=== PATIENT | female | born 1940 | race Caucasian/White ===

== ENCOUNTER 2018-02-05 22:18 | Emergency (ER) | payer OTHER, BC ==
[2018-02-05 22:24] VITALS: BMI 33.8
--- NOTE | 2018-02-06 00:55 | PDOC ---
History of Present Illness <Jojo Lange - Last Filed: 02/06/18 01:05> - General History Source: Patient Exam Limitations: No Limitations - History of Present Illness Initial Comments: 02/06/18 00:51 Patient is a 77F with history of HTN here today complaining of diffuse weakness for the past month. Patient endorses associated flushing. Denies chest pain, fevers, chills, nausea, vomiting. Denies dysuria, but endorses a baseline urinary frequency. Denies diarrhea, constipation. Denies leg swelling. Patient states that she had some momentary chest pain a week ago and is due to get a stress test and echo next week. Denies headache, cough, and shortness of breath. <Ten Moore - Last Filed: 02/06/18 02:57> - General Chief Complaint: Weakness Stated Complaint: weakness Time Seen by Provider: 02/05/18 23:38 Past History <NazarioJojo - Last Filed: 02/06/18 01:05> - Suicide/Smoking/Psychosocial Hx Smoking History: Never smoked Have you smoked in the past 12 months: No Information on smoking cessation initiated: No Hx Alcohol Use: No Drug/Substance Use Hx: No <Ten Moore - Last Filed: 02/06/18 02:57> - Past Medical History Allergies/Adverse Reactions: Allergies Allergy/AdvReac Type Severity Reaction Status Date / Time Sulfa (Sulfonamide Allergy Verified 02/05/18 22:26 Antibiotics) Home Medications: Ambulatory Orders Omeprazole 40 mg PO ONCE #30 capsule 11/06/13 Cephalexin Monohydrate [Keflex -] 500 mg PO BID #14 capsule 02/06/18 Review of Systems - Review of Systems Comments:: 02/06/18 00:53 GENERAL/CONSTITUTIONAL: No fever or chills. +weakness. HEAD, EYES, EARS, NOSE AND THROAT: No change in vision. No sore throat. CARDIOVASCULAR: No chest pain or shortness of breath RESPIRATORY: No cough, wheezing, or hemoptysis. GASTROINTESTINAL: No nausea, vomiting, diarrhea or constipation. GENITOURINARY: No dysuria, +frequency MUSCULOSKELETAL: No joint or muscle swelling or pain. No neck or back pain. SKIN: No rash NEUROLOGIC: No headache, vertigo, loss of consciousness, or change in strength/ sensation. ENDOCRINE: No increased thirst. No abnormal weight change HEMATOLOGIC/LYMPHATIC: No anemia, easy bleeding, or history of blood clots. ALLERGIC/IMMUNOLOGIC: No hives or skin allergy. <Ten Moore - Last Filed: 02/06/18 02:57> *Physical Exam - Vital Signs Last Vital Signs Temp Pulse Resp BP Pulse Ox 97.6 F 76 16 146/76 100 02/05/18 22:21 02/05/18 22:21 02/05/18 22:21 02/05/18 22:21 02/05/18 22:21 <Jojo Lange - Last Filed: 02/06/18 01:05> - Vital Signs Last Vital Signs Temp Pulse Resp BP Pulse Ox 97.6 F 76 16 146/76 100 02/05/18 22:21 02/05/18 22:21 02/05/18 22:21 02/05/18 22:21 02/05/18 22:21 - Physical Exam Comments: 02/06/18 00:54 GENERAL: Awake, alert, and fully oriented, in no acute distress HEAD: No signs of trauma, normocephalic, atraumatic EYES: PERRLA, EOMI, sclera anicteric, conjunctiva clear ENT: Auricles normal inspection, hearing grossly normal, nares patent, oropharynx clear without exudates. Moist mucosa NECK: Normal ROM, supple, no lymphadenopathy, JVD, or masses LUNGS: No distress, speaks full sentences, clear to auscultation bilaterally HEART: Regular rate and rhythm, normal S1 and S2, no murmurs, rubs or gallops, peripheral pulses normal and equal bilaterally. ABDOMEN: Soft, nontender, normoactive bowel sounds. No guarding, no rebound. No masses EXTREMITIES: Normal inspection, Normal range of motion, no edema. No clubbing or cyanosis. NEUROLOGICAL: Cranial nerves II through XII grossly intact. Normal speech, normal gait, no focal sensorimotor deficits SKIN: Warm, Dry, normal turgor, no rashes or lesions noted. <OscarTen - Last Filed: 02/06/18 02:57> Heart Score/ECG Review - Risk Factors Risk Factors Heart Score: Yes Hx Hypercholesterolemia, Yes Hx Hypertension, Yes Hx Obesity - ECG Intrepretation Rhythm: Regular Rhythm - Almo Almo: Normal - P and VT Prominent R with upright T in V1 (true posterior SC): No Delta Wave(s) Present: No - ST and T Early Repolarization: No Non Specific ST-T Wave changes: No Flattened T Waves: No Prolonged Q-T Interval: No <Jojo Lange - Last Filed: 02/06/18 01:05> ED Treatment Course - LABORATORY CBC & Chemistry Diagram: 02/06/18 01:30 02/06/18 01:30 - RADIOLOGY Radiology Studies Ordered: Category Date Time Status CHEST X-RAY PORTABLE* [RAD] Stat Radiology 02/06/18 00:01 Ordered <Ten Moore - Last Filed: 02/06/18 02:57> Medical Decision Making - Medical Decision Making 02/06/18 00:54 Patient is 77F with history of HTN here today complaining of weakness for 1 week. Vitals normal and stable. DDx includes, but is not limited to: UTI, CHF, pneumonia, atypical ACS. Will evaluate with cardiac labs, UA/UC, EKG, CXR. Likely discharge. 02/06/18 01:02 EKG shows normal sinus rhythm with rate of 61. No st elevations/depressions. Normal axis. Normal intervals. No significant t wave abnormalities. 02/06/18 02:15 CMP shows mild LESVIA. Given 1L. UA shows UTI. Given keflex. Will discharge home. Trop/BNP below thresholds. <Ten Moore - Last Filed: 02/06/18 02:57> *DC/Admit/Observation/Transfer <LangeJojo - Last Filed: 02/06/18 01:05> - Discharge Dispostion Decision to Admit order: No <OscarTen - Last Filed: 02/06/18 02:57> Diagnosis at time of Disposition: UTI (urinary tract infection), Hypothyroidism, Acute kidney injury - Discharge Dispostion Disposition: HOME Condition at time of disposition: Good - Prescriptions Prescriptions: Cephalexin Monohydrate [Keflex -] 500 mg PO BID #14 capsule - Referrals Referrals: Bassem Smiley MD [Primary Care Provider] - - Patient Instructions Printed Discharge Instructions: DI for Urinary Tract Infection (UTI), DI for Hypothyroidism Additional Instructions: You were seen today in the ED and found to have a UTI. We also found that your thyroid hormone level is likely low and that you were dehydrated. Please take your antibiotics until the prescription has been completed. Please call your primary care doctor to follow up on your lab results and weakness. - Post Discharge Activity
[2018-02-06 01:10] LABS: URINE APPEARANCE SLCLOUDY; URINE BILIRUBIN NEGATIVE (<2.0 mg/dL); URINE COLOR LTYELLOW; URINE GLUCOSE (UA) NEGATIVE (NEGATIVE); URINE KETONE NEGATIVE (NEGATIVE); URINE LEUK ESTERASE 3+ (NEGATIVE); URINE NITRITE NEGATIVE (NEGATIVE); URINE PROTEIN NEGATIVE (NEGATIVE); URINE UROBILINOGEN NEGATIVE mg/dL (0.2-1.0)
--- NOTE | 2018-02-06 01:10 | PDOC ---
Attending Attestation - HPI HPI: 02/06/18 01:17 The patient is a 77 year old female with no pertinent past medical history who presents to the ED with complaints of one week of generalized weakness with subjective fever and feels flushed. Denies any chills, vomiting, cough, SOB, or urinary complaints. Reports she had an episode of chest pain 4 days ago which she is being followed up with cardiology on an outpatient basis. Presently denies any chest pain. <Monica Laura - Last Filed: 02/06/18 01:14> - Resident Resident Name: Ten Moore - ED Attending Attestation I have performed the following: I have examined & evaluated the patient, The case was reviewed & discussed with the resident, I agree w/resident's findings & plan - Physicial Exam PE: 02/06/18 03:13 Agree with resident exam. Pt is afebrile. No back or flank pain elicited on exam. Pt has no CP or abd pain. Pt has minimal suprapubic tenderness. Afebrile HEENT normal - Medical Decision Making 02/06/18 01:07 Pt states that she has malaise and nausea x 3 days she noted that her BP was elevated, so she went to see her PMD, who asked her to cut one of her 3 BP meds in half. Pt states that she has no dysuria. The only pain that she has is her chronic back pain from bulging disks. 02/06/18 03:09 Pt is hypothyroid, and she has a UTI. 02/06/18 03:09 Pt will be treated with keflex 02/06/18 04:00 She will follow with PMD for further workup of the abnormal TSH. <Jojo Lange - Last Filed: 02/06/18 04:00>
[2018-02-06 01:16] LABS: EPI CELLS FEW /HPF (FEW); URINE BACTERIA FEW /hpf (NONE SEEN); URINE MUCUS RARE
[2018-02-06 01:39] LABS: BASO % 0.7 % (0-2.0); EOS % 2.1 % (0-4.5); HEMATOCRIT 41.9 % (32.4-45.2); LYMPH % 26.1 % (8-40); MCH 30.2 pg (25.7-33.7); MCHC 33.5 g/dl (32.0-36.0); MEAN PLT VOLUME 9.3 fl (7.5-11.1); MONO % 6.8 % (3.8-10.2); NEUT % 64.3 % (42.8-82.8); PLATELET COUNT 242 K/MM3 (134-434); RBC 4.66 M/mm3 (3.60-5.2); RDW 14.3 % (11.6-15.6); WHITE BLOOD COUNT 9.2 K/mm3 (4.0-10.0)
[2018-02-06 01:52] LABS: INR 0.94 (0.83-1.09); PROTHROMBIN TIME (PATIENT) 11.1 SEC (9.7-13.0)
[2018-02-06] MEDS ORDERED: CEPHALEXIN MONOHYDRATE 500 MG CAPSULE (UD) PO ONE (02:03)
[2018-02-06 02:05] LABS: ALBUMIN 3.8 g/dl (3.4-5.0); ALK PHOS 78 U/L (45-117); ANION GAP 10 MMOL/L (8-16); BILIRUBIN,TOTAL 0.3 mg/dL (0.2-1); BLOOD UREA NITROGEN 43 mg/dL (7-18); CALCIUM 9.3 mg/dL (8.5-10.1); CHLORIDE 103 mmol/L (98-107); CO2 26 mmol/L (21-32); CREATININE 1.4 mg/dL (0.55-1.3); GLUCOSE,RANDOM 109 mg/dL (74-106); MAGNESIUM 2.2 mg/dL (1.8-2.4); N-TERMINAL BNP 229.2 pg/ml (5-450); POTASSIUM 4.1 mmol/L (3.5-5.1); SGOT/AST 17 U/L (15-37); SGPT/ALT 20 U/L (13-61); SODIUM 138 mmol/L (136-145); TOT PROT 7.8 g/dl (6.4-8.2)
[2018-02-06] MEDS ORDERED: SODIUM CHLORIDE 1,000 ML IV STA (02:09)
[2018-02-06] MEDS ORDERED: CEPHALEXIN MONOHYDRATE 500 MG CAPSULE (UD) ONE (02:23)
[2018-02-06 03:22] VITALS: BP 145/74; PULSE 84; TEMP 97.9
--- NOTE | 2018-02-06 13:57 | EKG ---
Test Reason : Blood Pressure : / mmHG Vent. Rate : 061 BPM Atrial Rate : 061 BPM P-R Int : 168 ms QRS Dur : 080 ms QT Int : 428 ms P-R-T Axes : 048 -06 039 degrees QTc Int : 430 ms NORMAL SINUS RHYTHM NORMAL ECG WHEN COMPARED WITH ECG OF 17-AUG-2004 10:24, NO SIGNIFICANT CHANGE WAS FOUND Confirmed by MD Wheatley Edward ([id number]) on 02/06/2018 1:57:06 PM Referred By: Confirmed By:Edwar Wheatley MD
== END 2018-02-06 06:14 | disposition home or self-care (01) ==
LOC: JER 22:18
PROC: 3E0337Z Introduction of Electrolytic and Water Balance Substance into Peripheral Vein, Percutaneous Approach (ICD-10-PCS; principal; 2018-02-05)
DX: N39.0 Urinary tract infection, site not specified (principal); I10 Essential (primary) hypertension; E03.9 Hypothyroidism, unspecified
CPT/HCPCS: 36415; 71045-TC-FY; 80053; 81003; 81015; 82550; 83735; 83880; 84443; 84484; 85025; 85610; 87086; 93005; 93010; 96360; 99283-25; J7030

== ENCOUNTER 2018-07-12 09:02 | Inpatient (IN) | payer OTHER, BC ==
[2018-07-12] MEDS ORDERED: ACETAMINOPHEN 1000 MG/100 ML VIAL (NON FORMULARY) IVPB ONE (09:11)
--- NOTE | 2018-07-12 09:19 | PDOC ---
Attending Attestation - Resident Resident Name: Ten Moore - ED Attending Attestation I have performed the following: I have examined & evaluated the patient, The case was reviewed & discussed with the resident, I agree w/resident's findings & plan, Exceptions are as noted - HPI HPI: 07/12/18 09:25 Ms Rueda is a 77 yo F h/o HTN who presents to the ER due to a fall Pt states she was in her usual state of health She was going to the bathroom , her leg was "Asleep" She tripped and fell forward No head trauma, No LOC, no amnesia Pt injured her right ankle Unable to get herself to a standing position EMS called for transportation to the hospital Pt PMD- Baljit Pt Orthopedist - Dr Banerjee - Physicial Exam PE: 07/12/18 09:29 Pt is awake and alert Pt appears comfortable RRR CTA B/L No abdominal tenderness Pelvis stable Right ankle SWOLLEN, obvious deformity Pt able to wiggle her toes Sensation in tact DP difficult to palpate Left ankle, knee hip nml - Critical Care Time Total Critical Care Time: 60 Critical Care Statement: The care of this patient involved high complexity decision making to prevent further life threatening deterioration of the patient 's condition and/or to evaluate & treat vital organ system(s) failure or risk of failure. - Medical Decision Making 07/12/18 09:34 S/p slip and fall with ankle injury Will do: LAbs Xray Pt refused analgesia 07/12/18 10:00 Xray reveals distal fibula fracture-dislocation and mid shaft fibula fracture Dr. banerjee called 07/12/18 10:08 EKG: NSR rate of 62 bpm, axis nml, intervals nml, no st elevation or depression , t waves upright 07/12/18 11:48 Laboratory Tests 07/12/18 07/12/18 07/12/18 09:40 09:40 09:40 WBC 10.8 H Hgb 13.1 Hct 39.6 Plt Count 213 INR 1.00 BUN 37 H Creatinine 1.1 Still awaiting Orthopedic consultation No response from [facility] Call placed to Dr Olguin per patient's request He states pt can be seen tomorrow 07/12/18 12:27 DUNG Marquez is responded 07/12/18 13:08 Received call from DUNG Flores (Dr Banerjee's group) 07/12/18 13:38 Taken to OR
--- NOTE | 2018-07-12 09:21 | PDOC ---
History of Present Illness - General Stated Complaint: R/O FX Time Seen by Provider: 07/12/18 09:04 History Source: Patient Exam Limitations: No Limitations - History of Present Illness Initial Comments: 07/12/18 09:21 Patient is a 77F with history of HTN here today complaining of right ankle pain. Patient reports that she was walking to the bathroom this morning when she slipped and hurt her ankle. Denies trauma to head, neck, chest, abdomen, hips, arms. Denies fevers, chills, nausea, vomiting. Denies chest pain and shortness of breath. Denies LOC, denies taking blood thinners and aspirin. Past History - Past Medical History Allergies/Adverse Reactions: Allergies Allergy/AdvReac Type Severity Reaction Status Date / Time Sulfa (Sulfonamide Allergy Verified 07/12/18 10:10 Antibiotics) Home Medications: Ambulatory Orders Metoprolol Tartrate [Lopressor] 50 mg PO DAILY 07/12/18 HTN: Yes Hypercholesterolemia: Yes - Suicide/Smoking/Psychosocial Hx Smoking History: Never smoked Have you smoked in the past 12 months: No Hx Alcohol Use: No Drug/Substance Use Hx: No Review of Systems - Review of Systems Able to Perform ROS?: Yes Comments:: 07/12/18 09:23 GENERAL/CONSTITUTIONAL: No fever or chills. No weakness. HEAD, EYES, EARS, NOSE AND THROAT: No change in vision. No sore throat. CARDIOVASCULAR: No chest pain or shortness of breath RESPIRATORY: No cough, wheezing, or hemoptysis. GASTROINTESTINAL: No nausea, vomiting, diarrhea or constipation. GENITOURINARY: No dysuria, frequency, or change in urination. MUSCULOSKELETAL: +R ankle pain. No neck or back pain. SKIN: No rash NEUROLOGIC: No headache, vertigo, loss of consciousness, or change in strength/ sensation. HEMATOLOGIC/LYMPHATIC: No anemia, easy bleeding, or history of blood clots. *Physical Exam - Physical Exam Comments: 07/12/18 09:23 GENERAL: Awake, alert, and fully oriented, in no acute distress HEAD: No signs of trauma, normocephalic, atraumatic EYES: PERRLA, EOMI, sclera anicteric, conjunctiva clear ENT: Auricles normal inspection, hearing grossly normal, nares patent, oropharynx clear without exudates. Moist mucosa NECK: Normal ROM, supple, no midline tenderness LUNGS: No distress, speaks full sentences, clear to auscultation bilaterally HEART: Regular rate and rhythm, normal S1 and S2, no murmurs, rubs or gallops, peripheral pulses normal and equal bilaterally. ABDOMEN: Soft, nontender, normoactive bowel sounds. No guarding, no rebound. No masses EXTREMITIES OTHER THAN R LEG: Normal inspection, Normal range of motion, no edema. No clubbing or cyanosis. R LEG: +deformity along distal tib-fib. Limited ROM by pain, neurovascularly intact. NEUROLOGICAL: Cranial nerves II through XII grossly intact. Normal speech, no focal sensorimotor deficits SKIN: Warm, Dry, normal turgor, no rashes or lesions noted. ED Treatment Course - LABORATORY CBC & Chemistry Diagram: 07/12/18 09:40 07/12/18 09:40 - RADIOLOGY Radiology Studies Ordered: Category Date Time Status ANKLE & FOOT-RIGHT* [RAD] Stat Radiology 07/12/18 09:10 Ordered CHEST X-RAY PORTABLE* [RAD] Stat Radiology 07/12/18 09:10 Ordered Medical Decision Making - Medical Decision Making 07/12/18 09:25 Patient is 77F with history of HTN here today with R ankle pain. Elevated concern for fracture given deformity. Will draw preop labs and do x-ray, likely page ortho. 07/12/18 10:04 X-ray shows mid shaft spiral fracture of fibula, anterior tibia dislocation, fracture of distal tibia. Ortho paged. 07/12/18 12:15 Patient requested Chriss/Rusty, called 10:08, 10:53, and 11:23 with no response. Patient requested [facility], not available to see patient in house. Dr Ruiz pagearminda at 11:57. CBC, cmp reassuring. Patient to Dr Banerjee to the OR today. *DC/Admit/Observation/Transfer Diagnosis at time of Disposition: Ankle fracture - Discharge Dispostion Condition at time of disposition: Stable Decision to Admit order: Yes - Referrals - Patient Instructions - Post Discharge Activity
[2018-07-12] MEDS ORDERED: ACETAMINOPHEN INJECTION 100 ML IVPB ONE (09:27)
[2018-07-12 09:47] LABS: HEMATOCRIT 39.6 % (32.4-45.2); HEMOGLOBIN 13.1 GM/dL (10.7-15.3); MCH 30.2 pg (25.7-33.7); MEAN CELL VOLUME 91.3 fl (80-96); MEAN PLT VOLUME 9.2 fl (7.5-11.1); PLATELET COUNT 213 K/MM3 (134-434); RBC 4.34 M/mm3 (3.60-5.2); RDW 14.1 % (11.6-15.6); WHITE BLOOD COUNT 10.8 K/mm3 (4.0-10.0)
[2018-07-12 10:14] VITALS: BMI 32.9
[2018-07-12 10:14] LABS: PROTHROMBIN TIME (PATIENT) 11.8 SEC (9.7-13.0)
[2018-07-12 10:22] LABS: ALBUMIN 3.7 g/dl (3.4-5.0); ALK PHOS 86 U/L (45-117); ANION GAP 6 MMOL/L (8-16); BILIRUBIN,TOTAL 0.3 mg/dL (0.2-1); BLOOD UREA NITROGEN 37 mg/dL (7-18); CALCIUM 9.2 mg/dL (8.5-10.1); CHLORIDE 103 mmol/L (98-107); CO2 27 mmol/L (21-32); CREATININE 1.1 mg/dL (0.55-1.3); GLUCOSE,RANDOM 115 mg/dL (74-106); POTASSIUM 4.1 mmol/L (3.5-5.1); SGOT/AST 15 U/L (15-37); SGPT/ALT 21 U/L (13-61); SODIUM 136 mmol/L (136-145); TOT PROT 7.5 g/dl (6.4-8.2)
[2018-07-12] MEDS ORDERED: morphine CARPU-JECT 2 MG/1 ML DISP.SYRIN IVPUSH ONE (10:49)
[2018-07-12] MEDS ORDERED: MORPHINE SULFATE 2 MG/ML VIAL ONE (11:01)
[2018-07-12] MEDS ORDERED: ROPIVACAINE HCL 0.5% 30ML VIAL ONE (13:25)
[2018-07-12] MEDS ORDERED: MIDAZOLAM HCL 2 MG/2 ML SINGLE DOSE VIAL ONE ×2 (13:50)
[2018-07-12] MEDS ORDERED: ONDANSETRON 4 MG/2 ML VIAL IVPUSH PRN ×2 (13:53→15:59)
[2018-07-12] MEDS ORDERED: oxyCODONE HCL 5 MG TABLET PO PRN ×4 (13:54→15:59)
[2018-07-12] MEDS ORDERED: LACTATED RINGERS SOLUTION 1,000 ML IV SCH ×2 (14:00→15:59)
--- NOTE | 2018-07-12 14:14 | CON.ORTH ---
Consult Reason for Consultation:: right ankle fx/dislocation - Alcohol/Substance Use Hx Alcohol Use: No - Smoking History Smoking history: Never smoked Have you smoked in the past 12 months: No Home Medications - Allergies Allergies/Adverse Reactions: Allergies Allergy/AdvReac Type Severity Reaction Status Date / Time Sulfa (Sulfonamide Allergy Verified 07/12/18 10:10 Antibiotics) - Home Medications Home Medications: Ambulatory Orders Metoprolol Tartrate [Lopressor] 50 mg PO DAILY 07/12/18 Physical Exam for Ortho Vital Signs: Vital Signs Temperature 97.2 F L 07/12/18 13:35 Pulse Rate 72 07/12/18 13:35 Respiratory Rate 16 07/12/18 13:35 Blood Pressure 124/97 07/12/18 13:35 O2 Sat by Pulse Oximetry (%) 99 07/12/18 13:35 Labs: CBC, BMP 07/12/18 09:40 07/12/18 09:40 INR, PTT INR 1.00 (0.83-1.09) 07/12/18 09:40 - Lower Extremity Ankle: Yes: Right, Assymetrical, Deformity, Limited ROM, Pain, Swelling, Tenderness, Other (nvi) Imaging - Results X-ray: Image Reviewed Assessment/Plan 77F with history of HTN here today complaining of right ankle pain. Patient reports that she was walking to the bathroom this morning when she slipped and hurt her ankle. Denies trauma to head, neck, chest, abdomen, hips, arms. Denies fevers, chills, nausea, vomiting. Denies chest pain and shortness of breath. Denies LOC, denies taking blood thinners and aspirin. Pt has not eaten today. a/p- right ankle trimal fx/dislocation Risks and benefits were d/w pt in detail OR today for orif NPO Surgical clearance d/w Dr. Banerjee
[2018-07-12] MEDS ORDERED: ceFAZolin SODIUM 1 GM VIAL IVPB ONE (14:55)
[2018-07-12] MEDS ORDERED: ceFAZolin SODIUM 1 GM VIAL ONE (14:59)
--- NOTE | 2018-07-12 15:46 | OP ---
Operative Note - Note: Operative Date: 07/12/18 ([facility]) Pre-Operative Diagnosis: right trimal fx/dislocation Operation: right ankle orif Post-Operative Diagnosis: Same as Pre-op Surgeon: Alex Banerjee [employer]ukebox Coin Collector: Dennis Flores Anesthesiologist/AUTOMOTIVE PROFESSIONAL: Tunde Santos Anesthesia: Spinal, Local Estimated Blood Loss (mls): 10 Operative Report Dictated: Yes
[2018-07-12] MEDS ORDERED: hydrALAZINE HCL 20 MG/ML VIAL ONE (16:54)
--- NOTE | 2018-07-12 17:00 | CONS ---
DATE OF CONSULTATION: DATE OF DICTATION: 07/12/2018 ORTHOPEDIC CONSULTATION HISTORY OF PRESENT ILLNESS: The patient is a 77-year-old female status post fall at home today, complaining of pain and deformity of her right ankle. Negative loss of consciousness. PHYSICAL EXAMINATION: On physical examination, the patient has an obvious deformity with her foot and ankle externally rotated in relation to the proximal tibia. The medial distal tibia is tenting the skin on the medial side of the distal ankle. It was 2+ pulses, brisk capillary refill, calf is soft, nontender. X-rays showed right trimalleolar ankle fracture and syndesmosis rupture. IMPRESSION: Right trimalleolar fracture, dislocation, and syndesmosis rupture. PLAN: A provisional reduction was performed to remove the tension on the medial side of the distal tibia and the skin overlying that region. Patient will be taken to the operating room today for ORIF. Patient has been n.p.o. all morning and therefore ready to go to the OR. Lab work is within normal limits. Initially as soon as the OR has a free time to allow us to proceed. PHYLLIS PULIDO M.D. [id number]
[2018-07-12] MEDS ORDERED: hydrALAZINE HCL 20 MG/ML VIAL IVPUSH ONE (18:11)
--- NOTE | 2018-07-12 20:26 | OP ---
DATE OF OPERATION: 07/12/2018 PREOPERATIVE DIAGNOSES: Right trimalleolar ankle fracture and syndesmosis rupture. POSTOPERATIVE DIAGNOSES: Right trimalleolar ankle fracture and syndesmosis rupture. PROCEDURE: Open reduction and internal fixation, right trimalleolar ankle fracture and syndesmosis repair. SURGICAL ATTENDING: Alex Banerjee MD AIR FILLER: DUNG Odom ANESTHESIA: Regional and spinal. CLOSURE: An Arthrex syndesmosis plate and 2 syndesmosis TightRopes for lateral side and syndesmosis, two 4.0 cannulated screws x 50 mm length Synthes screws medially, 2-0 Vicryl subcutaneous, alejo for the skin. ESTIMATED BLOOD LOSS: Negligible. COMPLICATIONS: None. CONDITION: Recovery in stable condition. DESCRIPTION OF OPERATIVE PROCEDURE: Patient was taken to the operating room on July 12, 2018. Regional and spinal anesthesia was administered by the anesthesiologist. IV Kefzol was administered prophylactically prior to the case. The right lower extremity was prepped and draped in the usual sterile fashion. The ankle was reduced and held in an anatomically reduced position. The lateral side was found to have a very high fibular fracture and a syndesmosis rupture. It was thus decided to treat it with TightRope and a TightRope plate. We first, however, dealt with the medial malleolar fracture first. A 4- to 5-cm, curved longitudinal incision over the medial side of the distal tibia was incised; hemostasis achieved with Bovie cautery. Sharp dissection was carried down to the length of the fracture. Curettes and irrigation were used to clean out the soft tissue and clot from the medial malleolar fracture. A drill hole was placed in the distal medial tibia proximal to the medial malleolar fracture. A pointed reduction clamp was used to anatomically reduce and hold the medial malleolus. Two K-wires from the 4.0 cannulated screw set were drilled from the proximal medial malleolus, past the fracture into the distal tibia. Proper placement confirmed on the AP, mortise, and lateral views taken with the image intensifier. These wires were depth gauged. Their proximal cortex was drilled with cannulated drill, and it was screwed with 50-mm hook achieving excellent compression and reduction of the fracture. Fluoroscopy confirmed ideal position of the screws. Then, the wires were removed as well as the pointed reduction clamp. Next, our attention was directed laterally. A small, 3-cm longitudinal incision over the posterolateral aspect of the distal fibula was incised. A 2-hole Arthrex syndesmosis TightRope plate was pinned to the posterolateral aspect of the fibula, up from the ankle joint. Two guidewires were drilled in different planes, through the plate, through 4 cortices while holding an anatomical reduction of the ankle in dorsiflexion and internal rotation. These wires were drilled parallel to the ankle joint, but in different planes to aid in gaining extra fixation. Each pin was drilled syndesmosis TightRope was deployed through each one, through the plate, and grabbing the medial cortex. Again, with the ankle in a neutral and internal rotation position, they were cinched flush with the plate. X-ray and fluoroscopy revealed excellent position of the plate and TightRope with anatomical reduction of the ankle mortise. The posterior malleolar fracture was seen to be anatomically reduced after this fixation, and no fixation was entertained for the posterior malleolus. Under fluoroscopy, the ankle was dressed in external rotation and found that the syndesmosis fixation was secure throughout. Both incisions were irrigated with copious amounts of irrigation. Subcutaneous was closed with 2-0 Vicryl and alejo for the skin. Sterile pressure dressing, followed by a U splint was applied. The patient was awakened from anesthesia and transferred to Recovery in stable condition. No complications. Estimated blood loss: Negligible. Delmy [id number]
[2018-07-12] MEDS ORDERED: CEFAZOLIN 2 GM/D5W 2 GM/50 ML ML IVPB SCH (22:00)
[2018-07-12] MEDS: CEFAZOLIN 2 GM/D5W 2 GM/50 ML ML IVPB SCH (22:11)
[2018-07-13] MEDS: CEFAZOLIN 2 GM/D5W 2 GM/50 ML ML IVPB SCH (06:01)
[2018-07-13 08:08] LABS: BASO % 0.4 % (0-2.0); EOS % 1.5 % (0-4.5); HEMATOCRIT 34.8 % (32.4-45.2); HEMOGLOBIN 11.7 GM/dL (10.7-15.3); LYMPH % 18.8 % (8-40); MCH 30.4 pg (25.7-33.7); MCHC 33.7 g/dl (32.0-36.0); MEAN CELL VOLUME 90.4 fl (80-96); MEAN PLT VOLUME 9.1 fl (7.5-11.1); MONO % 8.2 % (3.8-10.2); NEUT % 71.1 % (42.8-82.8); PLATELET COUNT 199 K/MM3 (134-434); RBC 3.85 M/mm3 (3.60-5.2); WHITE BLOOD COUNT 7.7 K/mm3 (4.0-10.0)
[2018-07-13 08:31] LABS: ALBUMIN 3.2 g/dl (3.4-5.0); ALK PHOS 74 U/L (45-117); ANION GAP 7 MMOL/L (8-16); BILIRUBIN,TOTAL 0.4 mg/dL (0.2-1); BLOOD UREA NITROGEN 27 mg/dL (7-18); CALCIUM 8.7 mg/dL (8.5-10.1); CHLORIDE 104 mmol/L (98-107); CO2 27 mmol/L (21-32); CREATININE 1.2 mg/dL (0.55-1.3); GLUCOSE,RANDOM 142 mg/dL (74-106); SGOT/AST 21 U/L (15-37); SGPT/ALT 17 U/L (13-61); SODIUM 138 mmol/L (136-145); TOT PROT 6.5 g/dl (6.4-8.2)
--- NOTE | 2018-07-13 10:12 | EKG ---
Test Reason : Blood Pressure : / mmHG Vent. Rate : 062 BPM Atrial Rate : 062 BPM P-R Int : 160 ms QRS Dur : 074 ms QT Int : 420 ms P-R-T Axes : 033 -06 012 degrees QTc Int : 426 ms NORMAL SINUS RHYTHM MINIMAL VOLTAGE CRITERIA FOR LVH, MAY BE NORMAL VARIANT BORDERLINE ECG NO PREVIOUS ECGS AVAILABLE Confirmed by GENESIS WATT MD ([id number]) on 07/13/2018 10:12:14 AM Referred By: Confirmed By:GENESIS WATT MD
--- NOTE | 2018-07-13 10:38 | HP ---
Admitting History and Physical - Primary Care Physician PCP: Bassem Smiley - Admission History of Present Illness: ER HISTORY - HPI HPI: 07/12/18 09:25 Ms Rueda is a 77 yo F h/o HTN who presents to the ER due to a fall Pt states she was in her usual state of health She was going to the bathroom , her leg was "Asleep" She tripped and fell forward No head trauma, No LOC, no amnesia Pt injured her right ankle Unable to get herself to a standing position EMS called for transportation to the hospital Pt PMD- Baljit Pt Orthopedist - Dr Banerjee PT EXAMINED BY ME IN THE FLOORS POD #1 States that she tripped and fell on her way to the bathroom denies head injuries has slight pain to right leg History Source: Patient Limitations to Obtaining History: No Limitations - Past Medical History Cardiovascular: Yes: HTN ...: No Musculoskeletal: Yes: Chronic low back pain - Smoking History Smoking history: Never smoked Have you smoked in the past 12 months: No - Alcohol/Substance Use Hx Alcohol Use: No Home Medications - Allergies Allergies/Adverse Reactions: Allergies Allergy/AdvReac Type Severity Reaction Status Date / Time Sulfa (Sulfonamide Allergy Verified 07/12/18 10:10 Antibiotics) - Home Medications Home Medications: Ambulatory Orders Metoprolol Tartrate [Lopressor] 50 mg PO DAILY 07/12/18 Review of Systems - Review of Systems Constitutional: denies: Chills, Fever Musculoskeletal: reports: Back Pain, Extremity Pain Physical Examination Vital Signs: Vital Signs Temperature 98.6 F 07/13/18 08:58 Pulse Rate 85 07/13/18 08:58 Respiratory Rate 20 07/13/18 08:58 Blood Pressure 126/50 L 07/13/18 08:58 O2 Sat by Pulse Oximetry (%) 100 07/12/18 22:00 Constitutional: Yes: No Distress, Calm Cardiovascular: Yes: Regular Rate and Rhythm Respiratory: Yes: CTA Bilaterally Gastrointestinal: Yes: Normal Bowel Sounds, Soft. No: Tenderness Extremities: Yes: Other (rt leg in cast) Edema: No Labs: CBC, BMP 07/13/18 07:30 07/13/18 07:30 Imaging - Results Chest X-ray: Image Reviewed (clear) X-ray: Report Reviewed EKG: Image Reviewed (NSR) Problem List - Problems (1) HTN (hypertension) Code(s): I10 - ESSENTIAL (PRIMARY) HYPERTENSION (2) Ankle fracture Code(s): S82.899A - OTH FRACTURE OF UNSP LOWER LEG, INIT FOR CLOS FX Assessment/Plan PLAN resume pt's home meds Will need DVT prophylaxis Pt wants to go home with home PT and VNS incentive spirometry pain control-- oxycodone too strong for her-- will change to Tylenol #3
[2018-07-13] MEDS ORDERED: METOPROLOL TARTRATE 50 MG TABLET (FP) PO SCH (10:45)
[2018-07-13] MEDS ORDERED: ACETAMINOPHEN WITH CODEINE 300MG/30MG TABLET PO PRN (11:26)
--- NOTE | 2018-07-13 13:01 | PN ---
Progress Note (short form) - Note Progress Note: Ortho Pt seen and examined s/p right ankle orif pod #1 Selected Entries 07/13/18 08:58 Temperature 98.6 F Pulse Rate 85 Respiratory 20 Rate Blood Pressure 126/50 L Laboratory Tests 07/13/18 07:30 WBC 7.7 Hgb 11.7 Hct 34.8 Plt Count 199 splint c/d/i, nvi a/p NWB RLE PT eval pain control ok to d/c home today if medically stable f/u in the office in 7-10 days
--- NOTE | 2018-07-13 14:39 | PN ---
Progress Note (short form) - Note Progress Note: Anesthesia post op note POD#1 S/P right ankle ORIF under spinal and perfer nerv block. Ambulating. pain 3-5/10 when standing, PT. VSS. No apparent post anesthesia complications. Continued care as per primary team.
[2018-07-13 14:50] VITALS: BP 136/69; PULSE 101; TEMP 98.5
--- NOTE | 2018-07-13 20:01 | DS ---
Physical Examination Vital Signs: Vital Signs Temperature 98.5 F 07/13/18 14:49 Pulse Rate 101 H 07/13/18 14:49 Respiratory Rate 20 07/13/18 08:58 Blood Pressure 136/69 07/13/18 14:49 O2 Sat by Pulse Oximetry (%) 97 07/13/18 09:00 Labs: CBC, BMP 07/13/18 07:30 07/13/18 07:30 Discharge Summary Reason For Visit: FRACTURE OF ANKLE Hospital Course: please see H& P does not need anticoagulation per Ortho s/o rt ankle ORIF stable for dc home Condition: Stable - Instructions Diet, Activity, Other Instructions: Non weight bearing to right lower extremity elevate right lower extremity F/U my office X 10 days. Call for appt Disposition: HOME - Home Medications Comprehensive Discharge Medication List: Ambulatory Orders Metoprolol Tartrate [Lopressor] 50 mg PO DAILY 07/12/18
[2018-07-14] MEDS ORDERED: LOSARTAN POTASSIUM 50 MG TABLET (FP) PO SCH (10:00)
== END 2018-07-13 17:54 | disposition home or self-care (01) | DRG 494 ==
LOC: JER 09:02 → JERBED 13:30 → J6S 17:36
PROVIDERS: ADMIT Internal Medicine; ATTEND Internal Medicine
PROC: 0QSG04Z Reposition Right Tibia with Internal Fixation Device, Open Approach (ICD-10-PCS; 2018-07-12)
PROC: 0QSJ04Z Reposition Right Fibula with Internal Fixation Device, Open Approach (ICD-10-PCS; principal; 2018-07-12 14:00)
DX: S82.51XA Displaced fracture of medial malleolus of right tibia, initial encounter for closed fracture (principal); S82.61XA Displaced fracture of lateral malleolus of right fibula, initial encounter for closed fracture; I10 Essential (primary) hypertension; W19.XXXA Unspecified fall, initial encounter; Y93.9 Activity, unspecified; Y92.098 Other place in other non-institutional residence as the place of occurrence of the external cause; Y99.9 Unspecified external cause status
CPT/HCPCS: 36415; 71045-TC-FY; 73610-TC-RT-FY; 73630-TC-RT-FY; 76000-TC-FY; 80053; 85025; 85027; 85610; 86850; 86900; 86901; 93005; 93010; 94010; 94760; 97116-GP; 97162-GP; 99285-25; J0131

== ENCOUNTER 2018-07-14 12:59 | Observation (INO) | payer OTHER, BC ==
--- NOTE | 2018-07-14 13:50 | PDOC ---
History of Present Illness - General Chief Complaint: Pain Stated Complaint: Injury Time Seen by Provider: 07/14/18 13:14 - History of Present Illness Initial Comments: Leatha Gracia is a 77yo woman with a PMH of HTN, POD #2 s/p ORIF right ankle , d/c yesterday, who presents from home requesting admission to rehab. She reports that she initially thought she would be able to care for herself at home , but she has been unable to get out of bed at all since returning home from the hospital yesterday. She has not been able to even walk to the bathroom, and she has been using a bedpan at home. She tried to get out of bed to walk to the bathroom today and instead slid off the bed onto the floor. Ms Gracia denies any head injury or LOC but says that her RLE was "underneath her" when she fell. She has no new pain in the right leg, however. She states that she has not needed any pain medication following the surgery and has only needed one naproxen this morning for pain control. She denies fevers, chills, difficulty breathing, chest pain, or n/v/d/c. She does report urinary frequency overnight and today without any dysuria. Past History - Past Medical History Allergies/Adverse Reactions: Allergies Allergy/AdvReac Type Severity Reaction Status Date / Time Sulfa (Sulfonamide Allergy Verified 07/14/18 13:11 Antibiotics) Home Medications: Ambulatory Orders Amlodipine Besylate [Norvasc -] 5 mg PO DAILY 07/14/18 Losartan/Hydrochlorothiazide [Losartan-Hctz 100-25 mg Tab] 1 each PO DAILY 07/14 Metoprolol Succinate [Toprol Xl] 50 mg PO DAILY 07/14/18 Cardiac Disorders: Yes (HTN) COPD: No HTN: Yes Hypercholesterolemia: Yes - Suicide/Smoking/Psychosocial Hx Smoking History: Current every day smoker Have you smoked in the past 12 months: No Information on smoking cessation initiated: No Hx Alcohol Use: No Drug/Substance Use Hx: No Substance Use Type: None Review of Systems - Review of Systems Comments:: General: No fevers, no chills, no weight or appetite change, no malaise HEENT: No changes in vision, no changes in hearing, no congestion, no sore throat CV: No chest pain, no palpitations, no LE edema Pulm: No SOB, no cough, no wheezing GI: No nausea or vomiting, no change in bowel habits, no melena : No frequency, no urgency, no dysuria Musc: See HPI Skin: No rash, no lesions, no erythema Endo: No excessive thirst, no heat/cold intolerance Heme: No unusual bruising or bleeding, no swollen glands Neuro: No syncope, no numbness/tingling, no focal weakness Vasc: No claudication Psych: No recent change in mood, no SI or HI *Physical Exam - Vital Signs Last Vital Signs Temp Pulse Resp BP Pulse Ox 97.6 F 86 18 188/80 H 100 07/14/18 13:06 07/14/18 13:06 07/14/18 13:06 07/14/18 13:06 07/14/18 13:06 - Physical Exam Comments: General: Comfortable, no acute distress HEENT: PERRL, EOMI, MMM, voice normal Cards: RRR, no murmur appreciated Pulm: Comfortable on room air, clear to auscultation bilaterally Abd: Soft, nontender, nondistended Back: No bony tenderness Ext: RLE with surgical spint in place. Sensation to ligiht touch intact, able to move R toes w/o difficulty. Strength diminished in RLE, barely able to extend /flex knee against gravity. Vasc: Extremities WWP. Skin: Normal color, no rashes or lesions Neuro: A&Ox3, CN grossly intact, normal speech, sensation grossly intact and symmetric Psych: Mood appropriate to situation ED Treatment Course - LABORATORY CBC & Chemistry Diagram: 07/14/18 15:25 07/14/18 15:25 - RADIOLOGY Radiology Studies Ordered: Category Date Time Status ANKLE-RIGHT [RAD] Stat Radiology 07/14/18 13:41 Ordered LEG TIB/FIB-RIGHT [RAD] Stat Radiology 07/14/18 13:41 Ordered Medical Decision Making - Medical Decision Making 07/14/18 13:42 Leatha Gracia is a 77yo woman with a PMH of HTN, POD #2 s/p ORIF right ankle , d/c yesterday, who presents from home stating that she has been unable to care for herself due to weakness and requesting admission for rehab. She slid off the bed and struck her R leg on the floor, no head injury, no LOC, currently denying any pain. - Given recent surgery, will xray R ankle and tib/fib to rule out any new injury. However, no pain, sensation intact, able to move toes. - Admitted by Dr Owusu. Call placed to discuss whether admission workup is needed or if Ms Gracia can be directly admitted to rehab. Will obtain labs, EKG, CXR if needed. 07/14/18 14:44 - Xray reviewed. No acute injury to RLE - Spoke to Dr Owusu. Recommends contacting to see if Ms Gracia can go directly to rehab - ED long term care social worker paged 07/14/18 15:04 - Update from . Due to insurance, Ms Gracia needs a 3day hospital stay for rehab admission. - CBC, CMP, EKG, CXR ordered - Will re-contact Dr Owusu when completed 07/14/18 16:59 - No concerning abnormalities on labs, CXR or EKG. - Spoke to Dr Owusu. Will admit. Discussed with Dr Ruiz. Caro Kaur PGY1 *DC/Admit/Observation/Transfer Diagnosis at time of Disposition: Trimalleolar fracture of right ankle Qualifiers: Encounter type: subsequent encounter - Discharge Dispostion Decision to Admit order: Yes - Referrals Referrals: Bassem Smiley MD [Primary Care Provider] - - Patient Instructions - Post Discharge Activity
--- NOTE | 2018-07-14 14:12 | PDOC ---
Attending Attestation - Resident Resident Name: NatashaCaro - ED Attending Attestation I have performed the following: I have examined & evaluated the patient, The case was reviewed & discussed with the resident, I agree w/resident's findings & plan, Exceptions are as noted - HPI HPI: 07/14/18 16:58 77 yo F with recent right ankle surgery, just discharged from hospital here today after sustained a fall last night. pt states she has been going to the bathroom frequently, last night slipped trying to get into bed, fall on back side. no head trauma. no neck or back pain. no loc. states her is elderly and cant help her in the house like she thought he would b able to. no cp no sob. no rash. no /v no fever. no other complaint. - Physicial Exam PE: 07/14/18 17:00 awake alert head atraumatic. no cervical spine tenderness. lungs clear bilaterally heart rrr no mrg abd soft nt nd. ext wwp. right lower ext with splint cdi. toes good color cap refill good. pelvis stable. hips nontender. from. nuero alert oriented x 3 GCS 15. - Medical Decision Making 07/14/18 14:09 77 yo F s/p OrIF right ankle, right fib fx, s/p dc from hospital here with fall. plan pt at risk of furhter falls, we will admit to pt/ ot assessment, and rehab placement ua r/o uti. labs. 07/14/18 17:01 07/14/18 17:02 cxr unchanged. ankle with hardward in place, tib/ fib with fibular fx. will admit dw dr العلي will admit pt ua negative for infection. Heart Score/ECG Review #1 General ECG Interpretation: Sinus Rhythm (74), Normal Rate, Normal Intervals, No acute ischemic changes
[2018-07-14 14:35] LABS: EPI CELLS 2.7 /HPF (0-5); PH,URINE 5.5 (5.0-8.0); URINE APPEARANCE CLEAR; URINE BACTERIA 1.9 /hpf (NEGATIVE); URINE BILIRUBIN NEGATIVE (NEGATIVE); URINE CASTS 2 /hpf (0-8); URINE COLOR YELLOW; URINE GLUCOSE (UA) NEGATIVE (NEGATIVE); URINE KETONE NEGATIVE (NEGATIVE); URINE LEUK ESTERASE TRACE (NEGATIVE); URINE NITRITE NEGATIVE (NEGATIVE); URINE PROTEIN NEGATIVE (NEGATIVE); URINE RBC 2 /hpf (0-4); URINE UROBILINOGEN 0.2 mg/dL (0.2-1.0); URINE WBC 4 /hpf (0-5)
[2018-07-14 15:33] LABS: BASO % 0.6 % (0-2.0); EOS % 1.3 % (0-4.5); HEMATOCRIT 36.1 % (32.4-45.2); LYMPH % 16.4 % (8-40); MCH 30.6 pg (25.7-33.7); MCHC 33.3 g/dl (32.0-36.0); MEAN CELL VOLUME 91.8 fl (80-96); MEAN PLT VOLUME 9.3 fl (7.5-11.1); MONO % 8.8 % (3.8-10.2); NEUT % 72.9 % (42.8-82.8); PLATELET COUNT 183 K/MM3 (134-434); RBC 3.93 M/mm3 (3.60-5.2); RDW 14.5 % (11.6-15.6); WHITE BLOOD COUNT 8.7 K/mm3 (4.0-10.0)
[2018-07-14 16:04] LABS: ALBUMIN 3.4 g/dl (3.4-5.0); ALK PHOS 72 U/L (45-117); ANION GAP 6 MMOL/L (8-16); BILIRUBIN,TOTAL 0.6 mg/dL (0.2-1); BLOOD UREA NITROGEN 27 mg/dL (7-18); CALCIUM 9.1 mg/dL (8.5-10.1); CHLORIDE 103 mmol/L (98-107); CO2 28 mmol/L (21-32); GLUCOSE,RANDOM 105 mg/dL (74-106); SGOT/AST 23 U/L (15-37); SGPT/ALT 14 U/L (13-61); SODIUM 137 mmol/L (136-145)
[2018-07-14] MEDS ORDERED: ACETAMINOPHEN WITH CODEINE 300MG/30MG TABLET PO PRN (17:31)
[2018-07-14 23:16] VITALS: BMI 34.3
[2018-07-15] MEDS: amLODIPine BESYLATE 5 MG TABLET (FP) PO SCH ×2 (09:09→09:11)
[2018-07-15] MEDS: LOSARTAN 50MG/HCTZ 12.5MG 1 TAB (FP) PO SCH (09:09)
[2018-07-15] MEDS: ENOXAPARIN NA (PORCINE) 40 MG/0.4 ML DISP.SYRIN SQ SCH (09:09)
[2018-07-15] MEDS ORDERED: ACETAMINOPHEN 325 MG TABLET (FP) PO PRN (10:35)
--- NOTE | 2018-07-15 10:41 | HP ---
Admitting History and Physical - Primary Care Physician PCP: Bassem Smiley - Admission Chief Complaint: fall-- need rehab History of Present Illness: pt seen/ examined chart reviewed Er notes reviewed/ discussed with pt Per er notes Leatha Gracia is a 77yo woman with a PMH of HTN, POD #2 s/p ORIF right ankle , d/c yesterday, who presents from home requesting admission to rehab. She reports that she initially thought she would be able to care for herself at home , but she has been unable to get out of bed at all since returning home from the hospital yesterday. She has not been able to even walk to the bathroom, and she has been using a bedpan at home. She tried to get out of bed to walk to the bathroom today and instead slid off the bed onto the floor. Ms Gracia denies any head injury or LOC but says that her RLE was "underneath her" when she fell. She has no new pain in the right leg, however. She states that she has not needed any pain medication following the surgery and has only needed one naproxen this morning for pain control. She denies fevers, chills, difficulty breathing, chest pain, or n/v/d/c. She does report urinary frequency overnight and today without any dysuria. pt awake/ comfortable today. History Source: Patient Limitations to Obtaining History: No Limitations - Past Medical History Cardiovascular: Yes: HTN ...: No Musculoskeletal: Yes: Chronic low back pain - Smoking History Smoking history: Never smoked Have you smoked in the past 12 months: No - Alcohol/Substance Use Hx Alcohol Use: No Home Medications - Allergies Allergies/Adverse Reactions: Allergies Allergy/AdvReac Type Severity Reaction Status Date / Time Sulfa (Sulfonamide Allergy Verified 07/14/18 13:11 Antibiotics) - Home Medications Home Medications: Ambulatory Orders Amlodipine Besylate [Norvasc -] 5 mg PO DAILY 07/14/18 Losartan/Hydrochlorothiazide [Losartan-Hctz 100-25 mg Tab] 1 each PO DAILY 07/14 Metoprolol Succinate [Toprol Xl] 50 mg PO DAILY 07/14/18 Review of Systems - Review of Systems Constitutional: reports: No Symptoms Eyes: reports: No Symptoms HENT: reports: No Symptoms Neck: reports: No Symptoms Cardiovascular: reports: No Symptoms Respiratory: reports: No Symptoms Gastrointestinal: reports: No Symptoms Genitourinary: reports: No Symptoms Musculoskeletal: reports: Other (right ankle - brace) Neurological: reports: No Symptoms Hematology/Lymphatic: reports: No Symptoms Psychiatric: reports: No Symptoms Physical Examination Vital Signs: Vital Signs Temperature 97.9 F 07/15/18 08:55 Pulse Rate 67 07/15/18 08:55 Respiratory Rate 20 07/15/18 08:55 Blood Pressure 153/64 07/15/18 08:55 O2 Sat by Pulse Oximetry (%) 94 L 07/14/18 22:00 Constitutional: Yes: No Distress, Calm Eyes: Yes: Conjunctiva Clear HENT: Yes: WNL Neck: Yes: Supple Cardiovascular: Yes: Regular Rate and Rhythm Respiratory: Yes: CTA Bilaterally Gastrointestinal: Yes: Soft Extremities: Yes: Other (right ankle - dressing +) Edema: No Neurological: Yes: Alert Labs: CBC, BMP 07/14/18 15:25 07/14/18 15:25 Imaging - Results Chest X-ray: Report Reviewed X-ray: Report Reviewed Problem List - Problems (1) Trimalleolar fracture of right ankle Code(s): S82.851A - DISPLACED TRIMALLEOLAR FRACTURE OF RIGHT LOWER LEG, INIT Qualifiers: Encounter type: subsequent encounter (2) HTN (hypertension) Code(s): I10 - ESSENTIAL (PRIMARY) HYPERTENSION Assessment/Plan Discussed PT fall precautions monitor bp pain control dvt prophylaxis ortho f/u -- Fibula fracture not stabilized. rehab will follow discussed with pt/ nursing staff also.
[2018-07-15] MEDS ORDERED: PT OWN MED DRAWER 7, Y5N ONE (11:17)
--- NOTE | 2018-07-15 11:24 | CON.ORTH ---
Consult Reason for Consultation:: s/p right ankle orif - Past Medical History Cardio/Vascular: Yes: HTN ...: No Musculoskeletal: Yes: Chronic low back pain - Alcohol/Substance Use Hx Alcohol Use: No - Smoking History Smoking history: Never smoked Have you smoked in the past 12 months: No Home Medications - Allergies Allergies/Adverse Reactions: Allergies Allergy/AdvReac Type Severity Reaction Status Date / Time Sulfa (Sulfonamide Allergy Verified 07/14/18 13:11 Antibiotics) - Home Medications Home Medications: Ambulatory Orders Amlodipine Besylate [Norvasc -] 5 mg PO DAILY 07/14/18 Losartan/Hydrochlorothiazide [Losartan-Hctz 100-25 mg Tab] 1 each PO DAILY 07/14 Metoprolol Succinate [Toprol Xl] 50 mg PO DAILY 07/14/18 Physical Exam for Ortho Vital Signs: Vital Signs Temperature 97.9 F 07/15/18 08:55 Pulse Rate 67 07/15/18 08:55 Respiratory Rate 20 07/15/18 08:55 Blood Pressure 153/64 07/15/18 08:55 O2 Sat by Pulse Oximetry (%) 94 L 07/15/18 10:34 Labs: CBC, BMP 07/14/18 15:25 07/14/18 15:25 - Lower Extremity Ankle: Yes: Right, Other (splint intact, nvi) Imaging - Results X-ray: Image Reviewed Assessment/Plan 77yo woman with a PMH of HTN, POD #2 s/p ORIF right ankle, d/c yesterday, who presents from home requesting admission to rehab. She reports that she initially thought she would be able to care for herself at home, but she has been unable to get out of bed at all since returning home from the hospital yesterday. She has not been able to even walk to the bathroom, and she has been using a bedpan at home. She tried to get out of bed to walk to the bathroom today and instead slid off the bed onto the floor. Ms Gracia denies any head injury or LOC but says that her RLE was "underneath her" when she fell. She has no new pain in the right leg, however. She states that she has not needed any pain medication following the surgery and has only needed one naproxen this morning for pain control. She denies fevers, chills, difficulty breathing, chest pain, or n/v/d/c. She does report urinary frequency overnight and today without any dysuria. a/p s/p right ankle ORIF s/p fall Xrays neg, hardware in unchanged position since surgery NWB RLE PT eval elevation d/c planning to rehab d/w Dr. Banerjee
--- NOTE | 2018-07-15 12:22 | EKG ---
Test Reason : Blood Pressure : / mmHG Vent. Rate : 074 BPM Atrial Rate : 074 BPM P-R Int : 162 ms QRS Dur : 076 ms QT Int : 392 ms P-R-T Axes : 041 000 014 degrees QTc Int : 435 ms NORMAL SINUS RHYTHM MINIMAL VOLTAGE CRITERIA FOR LVH, MAY BE NORMAL VARIANT BORDERLINE ECG WHEN COMPARED WITH ECG OF 12-JUL-2018 09:57, NO SIGNIFICANT CHANGE WAS FOUND Confirmed by SHUKRI SAMPSON, GENESIS ([id number]) on 07/15/2018 12:22:27 PM Referred By: Confirmed By:GENESIS WATT MD
[2018-07-16] MEDS: LOSARTAN 50MG/HCTZ 12.5MG 1 TAB (FP) PO SCH (09:28)
[2018-07-16] MEDS: amLODIPine BESYLATE 5 MG TABLET (FP) PO SCH (09:28)
[2018-07-16] MEDS: ENOXAPARIN NA (PORCINE) 40 MG/0.4 ML DISP.SYRIN SQ SCH (09:41)
--- NOTE | 2018-07-16 11:28 | PN ---
Progress Note (short form) - Note Progress Note: awake/ comfortable mild anxiety + Vital Signs Temp 98.9 F 07/16/18 09:00 Pulse 78 07/16/18 09:00 Resp 20 07/16/18 09:00 BP 138/96 07/16/18 09:00 Pulse Ox 95 07/16/18 10:00 Intake & Output 07/15/18 07/15/18 07/16/18 11:59 23:59 11:59 Intake Total 200 100 Balance 200 100 Intake: Oral 200 100 Other: Voiding Method Bedpan Bedside Commode # Unmeasured Voids Void 3 Bowel Movement No Yes # Bowel Movements 1 Active Medications Acetaminophen (Tylenol -) 650 mg PO Q4H PRN PRN Reason: PAIN LEVEL 1-5 Acetaminophen/Codeine Phosphate (Tylenol # 3 -) 1 tab PO Q8H PRN PRN Reason: PAIN LEVEL 6-10 Amlodipine Besylate (Norvasc -) 5 mg PO DAILY [facility] Last Admin: 07/16/18 09:28 Dose: Not Given Enoxaparin Sodium (Lovenox -) 40 mg SQ DAILY [facility] Last Admin: 07/16/18 09:41 Dose: 40 mg HCTZ/Losartan Potassium (Hyzaar -) 2 tab PO DAILY [facility] Last Admin: 07/16/18 09:28 Dose: Not Given Metoprolol Succinate (Toprol Xl -) 50 mg PO DAILY [facility] Last Admin: 07/16/18 09:28 Dose: Not Given CBC, BMP 07/14/18 15:25 07/14/18 15:25 Physical Examination Constitutional: Yes: No Distress, Calm but slight anxious. Eyes: Yes: Conjunctiva Clear HENT: Yes: WNL Neck: Yes: Supple. Cardiovascular: Yes: Regular Rate and Rhythm Respiratory: Yes: CTA Bilaterally Gastrointestinal: Yes: Soft Extremities: Yes: Other (right ankle - dressing +) Edema: No Neurological: Yes: Alert. Problem List - Problems (1) Trimalleolar fracture of right ankle Code(s): S82.851A - DISPLACED TRIMALLEOLAR FRACTURE OF RIGHT LOWER LEG, INIT Qualifiers: Encounter type: subsequent encounter (2) HTN (hypertension) Code(s): I10 - ESSENTIAL (PRIMARY) HYPERTENSION Assessment/Plan Discussed PT fall precautions monitor bp pain control dvt prophylaxis ortho f/u -- noted rehab will follow discussed with pt/ nursing staff also. Problem List - Problems (1) Trimalleolar fracture of right ankle Code(s): S82.851A - DISPLACED TRIMALLEOLAR FRACTURE OF RIGHT LOWER LEG, INIT Qualifiers: Encounter type: subsequent encounter (2) HTN (hypertension) Code(s): I10 - ESSENTIAL (PRIMARY) HYPERTENSION
[2018-07-17] MEDS: ENOXAPARIN NA (PORCINE) 40 MG/0.4 ML DISP.SYRIN SQ SCH (10:00)
[2018-07-17] MEDS: amLODIPine BESYLATE 5 MG TABLET (FP) PO SCH (10:03)
[2018-07-17] MEDS: LOSARTAN 50MG/HCTZ 12.5MG 1 TAB (FP) PO SCH (10:03)
--- NOTE | 2018-07-17 11:03 | PN ---
Progress Note (short form) - Note Progress Note: pt seen/ examined comfortable no new issues denies pt walks with PT Vital Signs Temp 98.5 F 07/17/18 09:06 Pulse 72 07/17/18 09:06 Resp 18 07/17/18 09:06 BP 142/91 07/17/18 09:06 Pulse Ox 95 07/16/18 18:00 Intake & Output 07/16/18 07/16/18 07/17/18 11:59 23:59 11:59 Intake Total 100 1000 Balance 100 1000 Intake: Oral 100 1000 Other: Voiding Method Bedside Commode Bedside Commode Bedside Commode # Unmeasured Voids Void 2 2 Bowel Movement No No # Bowel Movements 0 CBC, BMP 07/14/18 15:25 07/14/18 15:25 Physical Examination Constitutional: Yes: No Distress, Calm . Eyes: Yes: Conjunctiva Clear HENT: Yes: WNL Neck: Yes: Supple. Cardiovascular: Yes: Regular Rate and Rhythm Respiratory: Yes: CTA Bilaterally Gastrointestinal: Yes: Soft Extremities: Yes: Other (right ankle - dressing +) Edema: No Neurological: Yes: Alert. Assessment/Plan stable PT fall precautions monitor bp pain control dvt prophylaxis ortho f/u -- noted rehab will follow discussed with pt/ nursing staff also. Likely d/c tomorrow. Problem List - Problems (1) Trimalleolar fracture of right ankle Code(s): S82.851A - DISPLACED TRIMALLEOLAR FRACTURE OF RIGHT LOWER LEG, INIT Qualifiers: Encounter type: subsequent encounter (2) HTN (hypertension) Code(s): I10 - ESSENTIAL (PRIMARY) HYPERTENSION
--- NOTE | 2018-07-17 13:50 | DS ---
Physical Examination Vital Signs: Vital Signs Temperature 98.5 F 07/17/18 09:06 Pulse Rate 72 07/17/18 09:06 Respiratory Rate 18 07/17/18 09:06 Blood Pressure 142/91 07/17/18 09:06 O2 Sat by Pulse Oximetry (%) 95 07/17/18 10:00 Findings/Remarks: see today progress note Labs: CBC, BMP 07/14/18 15:25 07/14/18 15:25 Discharge Summary Reason For Visit: TRIMALLEOLAR FRACTURE OF RIGHT ANKLE Current Active Problems Trimalleolar fracture of right ankle (Acute) Hospital Course: s/p orif - right ankle stable for d/c to str Condition: Stable - Instructions Disposition: [facility] - Home Medications Comprehensive Discharge Medication List: Ambulatory Orders Amlodipine Besylate [Norvasc -] 5 mg PO DAILY 07/14/18 Losartan/Hydrochlorothiazide [Losartan-Hctz 100-25 mg Tab] 1 each PO DAILY 07/14 Metoprolol Succinate [Toprol Xl] 50 mg PO DAILY 07/14/18 Enoxaparin [Lovenox -] 40 mg SQ DAILY disp.syrin 07/17/18
[2018-07-17 14:47] VITALS: BP 133/53; PULSE 79; TEMP 97.7
== END 2018-07-17 15:41 ==
LOC: JER 12:59 → UNDOADMOB 15:54 → J6S 15:54 → INTOOBSV 15:54 → J6S 07-15 10:34
PROVIDERS: ADMIT Internal Medicine; ATTEND Internal Medicine
PROC: 3E013GC Introduction of Other Therapeutic Substance into Subcutaneous Tissue, Percutaneous Approach (ICD-10-PCS; principal; 2018-07-15)
DX: S82.851D Displaced trimalleolar fracture of right lower leg, subsequent encounter for closed fracture with routine healing (principal); X58.XXXD Exposure to other specified factors, subsequent encounter; I10 Essential (primary) hypertension; E78.5 Hyperlipidemia, unspecified; F17.210 Nicotine dependence, cigarettes, uncomplicated; Z88.2 Allergy status to sulfonamides; W06.XXXA Fall from bed, initial encounter; Y93.89 Activity, other specified; Y92.003 Bedroom of unspecified non-institutional (private) residence as the place of occurrence of the external cause
CPT/HCPCS: 36415; 71045-TC-FY; 73590-TC-RT-FY; 73610-TC-RT-FY; 80053; 81003; 85025; 93005; 93010; 96372; 97116-GP; 97162-GP; 99282-25; G0378

== ENCOUNTER 2018-08-14 16:54 | Inpatient (IN) | payer OTHER, BC ==
[2018-08-14 17:38] LABS: BASO % 0.6 % (0-2.0); EOS % 1.2 % (0-4.5); HEMATOCRIT 38.5 % (32.4-45.2); HEMOGLOBIN 12.7 GM/dL (10.7-15.3); LYMPH % 16.5 % (8-40); MCH 30.1 pg (25.7-33.7); MCHC 33.1 g/dl (32.0-36.0); MONO % 5.8 % (3.8-10.2); NEUT % 75.9 % (42.8-82.8); PLATELET COUNT 241 K/MM3 (134-434); RBC 4.23 M/mm3 (3.60-5.2); RDW 14.6 % (11.6-15.6); WHITE BLOOD COUNT 9.7 K/mm3 (4.0-10.0)
--- NOTE | 2018-08-14 17:38 | PDOC ---
History of Present Illness - General Chief Complaint: Syncope/Near Syncope Stated Complaint: SYNCOPE Time Seen by Provider: 08/14/18 17:05 History Source: Patient, Family (son and ) Exam Limitations: No Limitations - History of Present Illness Initial Comments: 08/14/18 17:35 Pt is a 77yo F with PMH of HTN, R tib/fib fx s/p fixation 5 weeks ago BIBA for a syncopal episode. Pt states that she was at home and ate more than she usually does. She started to feel hot, lightheaded and nauseous. She went into the living room in her wheelchair and the next thing she remembers is feeling groggy but not confused. Per son, pt was in the wheelchair and head fell back a little and eyes were glossed over. Pt was not responding for 10-20s. She did not have any jerking motions. She needed to use the restroom after waking up. She has never had a syncopal episode before. She denies chest pain, sob, back pain, abdominal pain, v/d, hematuria, bloody stools, headache, fevers, chills, leg swelling, changes in vision, tinnitus, dizziness, numbness/tingling. She has been taking full dose ASA daily. PMD: Baljit PMH: see hpi PSH: see hpi Meds: see med rec Allergies: Sulfa Past History - Past Medical History Allergies/Adverse Reactions: Allergies Allergy/AdvReac Type Severity Reaction Status Date / Time Sulfa (Sulfonamide Allergy Verified 07/14/18 13:11 Antibiotics) Home Medications: Ambulatory Orders Amlodipine Besylate [Norvasc -] 5 mg PO DAILY 07/14/18 Losartan/Hydrochlorothiazide [Losartan-Hctz 100-25 mg Tab] 1 each PO DAILY 07/14 Metoprolol Succinate [Toprol Xl] 50 mg PO DAILY 07/14/18 Aspirin [ASA -] 325 mg PO DAILY 08/14/18 Cardiac Disorders: Yes (HTN) COPD: No HTN: Yes Hypercholesterolemia: Yes - Surgical History Orthopedic Surgery: Yes (ORIF Rt ankle 07/12/18) - Suicide/Smoking/Psychosocial Hx Smoking History: Never smoked Have you smoked in the past 12 months: No Information on smoking cessation initiated: No Hx Alcohol Use: No Drug/Substance Use Hx: No Substance Use Type: None Hx Substance Use Treatment: No Review of Systems - Review of Systems Constitutional: No: Chills, Fever, Weakness HEENTM: No: Symptoms Reported Respiratory: No: Cough, Shortness of Breath Cardiac (ROS): Yes: Lightheadedness, Syncope. No: Chest Pain, Palpitations ABD/GI: Yes: Nausea. No: Constipated, Diarrhea, Rectal Bleeding, Vomiting, Abdominal cramping, Tarry Stools : No: Burning, Dysuria Musculoskeletal: No: Back Pain, Joint Pain, Neck Pain Integumentary: No: Symptoms Reported Neurological: No: Headache, Numbness, Paresthesia, Seizure, Tingling, Weakness *Physical Exam - Vital Signs Last Vital Signs Temp Pulse Resp BP Pulse Ox 97.5 F L 72 20 106/67 97 08/14/18 17:01 08/14/18 17:01 08/14/18 17:01 08/14/18 17:01 08/14/18 17:01 - Physical Exam General Appearance: Yes: Nourished, Appropriately Dressed. No: Apparent Distress HEENT: positive: EOMI, GEOVANNY, Normal ENT Inspection Neck: positive: Trachea midline, Supple Respiratory/Chest: positive: Lungs Clear, Normal Breath Sounds. negative: Labored Respiration, Crackles, Wheezing Cardiovascular: positive: Regular Rhythm, Regular Rate, S1, S2. negative: Edema , JVD, Murmur Vascular Pulses: Carotid (R): 2+, Carotid (L): 2+, Doralis-Pedis (L): 2+ Gastrointestinal/Abdominal: positive: Normal Bowel Sounds, Soft. negative: Tender Musculoskeletal: positive: Other (RLE in post op boot). negative: CVA Tenderness Extremity: positive: Normal Capillary Refill. negative: Calf Tenderness Integumentary: positive: Normal Color, Dry, Warm Neurologic: positive: transportation agent II-XII NML intact, Fully Oriented, Alert, Normal Mood/ Affect, Normal Response, Motor Strength 08/14 ED Treatment Course - LABORATORY CBC & Chemistry Diagram: 08/14/18 17:22 08/14/18 17:22 - ADDITIONAL ORDERS Additional order review: Laboratory Results 08/14/18 08/14/18 08/14/18 17:22 17:22 17:22 PT with INR 12.90 INR 1.09 PTT (Actin FS) 26.8 D-Dimer 6049 H Sodium 141 Potassium 3.7 Chloride 102 Carbon Dioxide 30 Anion Gap 9 BUN 36 H Creatinine 1.7 H Creat Clearance w eGFR 29.14 Random Glucose 169 H Calcium 9.5 Magnesium 1.8 Total Bilirubin 0.3 AST 16 ALT 18 Alkaline Phosphatase 95 Troponin I < 0.02 Total Protein 7.1 Albumin 3.6 08/14/18 17:22 RBC 4.23 MCV 91.0 MCHC 33.1 RDW 14.6 MPV 9.0 Neutrophils % 75.9 Lymphocytes % 16.5 Monocytes % 5.8 Eosinophils % 1.2 Basophils % 0.6 - RADIOLOGY Radiology Studies Ordered: Category Date Time Status CHEST X-RAY PORTABLE* [RAD] Stat Radiology 08/14/18 17:39 Taken - Medications Given in the ED: ED Medications Discontinued Medications Generic Name Dose Route Start Last Admin Trade Name Freq PRN Reason Stop Dose Admin Sodium Chloride 500 mls @ 1,000 mls/hr 08/14/18 17:57 08/14/18 17:59 Normal Saline - IV 08/14/18 18:26 1,000 mls/hr ASDIR STA Administration Medical Decision Making - Medical Decision Making 08/14/18 17:40 Pt is a 77yo F with PMH of HTN, R tib/fib fx s/p fixation 5 weeks ago BIBA for a syncopal episode. Pt states that she was at home and ate more than she usually does. She started to feel hot, lightheaded and nauseous. She went into the living room in her wheelchair and the next thing she remembers is feeling groggy but not confused. Per son, pt was in the wheelchair and head fell back a little and eyes were glossed over. Pt was not responding for 10-20s. She did not have any jerking motions. She needed to use the restroom after waking up. She has never had a syncopal episode before. She denies chest pain, sob, back pain, abdominal pain, v/d, hematuria, bloody stools, headache, fevers, chills, leg swelling, changes in vision, tinnitus, dizziness, numbness/tingling. She has been taking full dose ASA daily. Vitals: borderline hypotension PE: normal neurological exam, normal heart sounds, lungs cta. RLE in post op boot Ddx includes but not limited to syncope (vasovagal v. arrhythmia v. orthostatic) , cva/tia, mi, pe, medication interaction, metabolic/electrolyte abnormality, dehydration -labs, trop, d-dimer, coags -cxr, ekg -fluids likely admission for syncope. 08/14/18 18:09 CXR: compared to priors, no acute pathology EKG: nsr at 68. MD 166, QTc 427. no marichuy or depressions. Flat T in III, V1. Labs: normal cbc. chemistry shows decreasing kidney function with Cr 1.7 ( around 1-1.2 baseline). GFR 30 (has been higher before). Trop negative. Pending coags 08/14/18 18:39 Ddimer 6000, otherwise normal coags. will treat with heparin -heparin bolus 80u/kg and drip 18u/kg/hr. admit for syncope, acute renal insufficiency and elevated d-dimer (cannot CTA due to kidney function) *DC/Admit/Observation/Transfer Diagnosis at time of Disposition: Acute kidney injury Syncope Qualifiers: Syncope type: unspecified Qualified Code(s): R55 - Syncope and collapse - Discharge Dispostion Condition at time of disposition: Good Decision to Admit order: Yes Decision to Admit order Date/Time: Decision to Admit Order Category Date Time Status Decision to Admit to Hospital Routine Admission 08/14/18 18:02 Active - Referrals Referrals: Bassem Smiley MD [Primary Care Provider] - - Patient Instructions - Post Discharge Activity
--- NOTE | 2018-08-14 17:39 | PDOC ---
Documentation entered by Sudheer Olmedo SCRIBE, acting as scribe for Daryn Gloria MD. Daryn Gloria MD: This documentation has been prepared by the Honorio diaz Daniel, SCRIBE, under my direction and personally reviewed by me in its entirety. I confirm that the documentation accurately reflects all work, treatment, procedures, and medical decision making performed by me. Attending Attestation - Resident Resident Name: Stacey Gonzáles - ED Attending Attestation I have performed the following: I have examined & evaluated the patient, The case was reviewed & discussed with the resident, I agree w/resident's findings & plan, Exceptions are as noted - HPI HPI: 08/14/18 17:28 The patient is a 77 year old female with a past medical history of HTN and right tib fib fixation ([address] Banerjee) here today for evaluation of syncopal episode. The patient reports that she doesnt remember passing out but remembers feeling groggy and feeling hot after her episode. According to the patients son, she leaned back in her wheelchair and her eyes rolled back when she passed out. Patient reports that this never happened before and currently complains of some lightheadedness. Patient denies headache. Denies fever, chills. Denies chest pain, shortness of breath. Denies nausea, vomiting, diarrhea, abdominal pain. Denies neurological symptoms. Allergies: sulfa PCP: Bassem Smiley - Physicial Exam PE: 08/14/18 17:39 GENERAL: Awake, alert, and fully oriented, in no acute distress HEAD: No signs of trauma EYES: EOMI, sclera anicteric, conjunctiva clear ENT: Auricles normal inspection, hearing grossly normal, nares patent, Moist mucosa NECK: Normal ROM, supple, LUNGS: Breath sounds equal, clear to auscultation bilaterally. No wheezes, and no crackles HEART: Regular rate and rhythm, normal S1 and S2, no murmurs, rubs or gallops ABDOMEN: Soft, nontender,. No guarding, no rebound. No masses EXTREMITIES: Normal range of motion, no edema. RLE with boot. NEUROLOGICAL: Cranial nerves II through XII grossly intact. Normal speech, SKIN: Warm, Dry, normal turgor, no rashes or lesions noted. - Medical Decision Making 08/14/18 17:40 A portion of this note was documented by scribe services under my direction. I have reviewed the details of the note, within reason, and agree with the documentation with the following case summary and management plan written by me. Patient treated in the ED. Nursing notes are reviewed and incorporated into the medical decision-making. Vital signs reviewed. Peripheral IV access obtained by the nurse, laboratory studies are drawn and sent, reviewed and interpreted by myself. Vital Signs Temp Pulse Resp BP Pulse Ox 97.5 F L 72 20 106/67 97 08/14/18 17:01 08/14/18 17:01 08/14/18 17:01 08/14/18 17:01 08/14/18 17:01 77-year-old female presents with syncope. The patient reported that she was in her usual state health when she suddenly felt flushed, warm and nauseous. She felt lightheaded and subsequently syncopized in a wheelchair. Denied chest pain or shortness of breath. Denied palpitations. When she woke up, the patient woke up without confusion. She really needed to urinate and defecate so went to the bathroom. Patient current has no symptoms right now. The patient may potentially have had vasovagal syncopal he but given her age, we will need to investigate for other etiologies. We'll obtain labs including troponin. Though the patient is no chest pain short of breath, the patient does have a chronic right lower external the boot and uses a wheelchair often. We'll send a d-dimer to rule out pulmonary embolism. The patient should be admitted to the hospital for telemetry and observation. 08/14/18 18:35 CBC, BMP 08/14/18 17:22 08/14/18 17:22 D-dimer ~6000. Given her higher risk of PE, and unable to obtain CT scan of chest due to LESVIA ( Cr 1.7), pt will be empirically initiated on weight-based heparin bolus and drip. The patient and patient's family has been given results. The patient should be admitted for a V/Q scan. Admit for syncope and r/o PE. Heart Score/ECG Review #1 ECG reviewed & interpreted by me at: 17:15 08/14/18 17:40 NSR 68, LVH, no std/marichuy, normal axis, normal intervals, QTC 427 msec, no brugada , no HOCM, no WPW
[2018-08-14] MEDS ORDERED: SODIUM CHLORIDE 500 ML IV STA (17:57)
[2018-08-14 18:07] LABS: ALBUMIN 3.6 g/dl (3.4-5.0); ALK PHOS 95 U/L (45-117); ANION GAP 9 MMOL/L (8-16); BILIRUBIN,TOTAL 0.3 mg/dL (0.2-1); BLOOD UREA NITROGEN 36 mg/dL (7-18); CALCIUM 9.5 mg/dL (8.5-10.1); CHLORIDE 102 mmol/L (98-107); CO2 30 mmol/L (21-32); CREATININE 1.7 mg/dL (0.55-1.3); GLUCOSE,RANDOM 169 mg/dL (74-106); MAGNESIUM 1.8 mg/dL (1.8-2.4); POTASSIUM 3.7 mmol/L (3.5-5.1); SGOT/AST 16 U/L (15-37); SGPT/ALT 18 U/L (13-61); SODIUM 141 mmol/L (136-145); TOT PROT 7.1 g/dl (6.4-8.2)
[2018-08-14 18:21] LABS: INR 1.09 (0.83-1.09); PROTHROMBIN TIME (PATIENT) 12.9 SEC (9.7-13.0)
[2018-08-14 18:24] LABS: ACTIVATED PTT 26.8 SECONDS (25.2-36.5)
[2018-08-14] MEDS ORDERED: HEPARIN NA (PORCINE) 5,000 UNITS/ML 1ML VIAL IVPUSH ONE (18:35)
[2018-08-14] MEDS ORDERED: HEPARIN NA (PORCINE) 5,000 UNITS/ML 1ML VIAL ONE (18:47)
[2018-08-14] MEDS ORDERED: HEPARIN INFUSION - 25,000 UNITS/500 ML INFUS.BAG IVPB ONE (18:47)
[2018-08-14] MEDS: HEPARIN - 25,000 UNIT in SODIUM CHLORIDE 495 ML IV SCH (18:59)
--- NOTE | 2018-08-14 20:17 | HP ---
CHIEF COMPLAINT: witnessed syncopal episode with LOC PCP:Dr. Farley HISTORY OF PRESENT ILLNESS 77 year old female with history of hypertension and a right tibia fixation [address] Centeno who was discharged home from [facility] on 2018 who presented by ambulance for a witnessed syncopal episode. Patient states that she was at home and started to feel hot, lightheaded and nauseous. As per son patient was in the wheelchair and head fell back a little and eyes were rolled over. Patient was not responding for about 10-20 seconds. She denied shortness of breath or hemoptysis. She reports she has been having right sided chest pain since she left [place] and relates this to muskuloskeletal pain. She reports she has not been that active, with no physical therapy rehabilitation since she left [facility] and she reported she has been sedentary. Upon evaluation in the ER she was found to have an elevated D-Dimer of 6049 and creatinine of 1.7. She was unable to have a CT angiogram of chest due to acute renal insufficiency. She was started on a continuous IV heparin drip.She is being admitted to telemetry for further medical and cardiac monitoring. Recent Travel: denies PAST MEDICAL HISTORY: hypertension PAST SURGICAL HISTORY: right tibia fixation Social History: Smoking:denies Alcohol:denies Drugs: denies Family History:noncontributory Allergies Sulfa (Sulfonamide Antibiotics) Allergy (Verified 07/14/18 13:11) HOME MEDICATIONS: Home Medications Medication Instructions Recorded Amlodipine Besylate [Norvasc -] 5 mg PO DAILY 07/14/18 Losartan/Hydrochlorothiazide 1 each PO DAILY 07/14/18 [Losartan-Hctz 100-25 mg Tab] Metoprolol Succinate [Toprol Xl] 50 mg PO DAILY 07/14/18 Aspirin [ASA -] 325 mg PO DAILY 08/14/18 REVIEW OF SYSTEMS CONSTITUTIONAL: Absent: fever, chills, diaphoresis, generalized weakness, malaise, loss of appetite, weight change HEENT: Absent: rhinorrhea, nasal congestion, throat pain, throat swelling, difficulty swallowing, mouth swelling, ear pain, eye pain, visual changes CARDIOVASCULAR: Absent: right sided chest pain, syncope, palpitations, irregular heart rate, lightheadedness, peripheral edema RESPIRATORY: Absent: cough, shortness of breath, dyspnea with exertion, orthopnea, wheezing, stridor, hemoptysis GASTROINTESTINAL: Absent: abdominal pain, abdominal distension, nausea, vomiting, diarrhea, constipation, melena, hematochezia GENITOURINARY: Absent: dysuria, frequency, urgency, hesitancy, hematuria, flank pain, genital pain MUSCULOSKELETAL: Absent: myalgia, arthralgia, joint swelling, back pain, neck pain SKIN: Absent: rash, itching, pallor HEMATOLOGIC/IMMUNOLOGIC: Absent: easy bleeding, easy bruising, lymphadenopathy, frequent infections ENDOCRINE: Absent: unexplained weight gain, unexplained weight loss, heat intolerance, cold intolerance NEUROLOGIC: Absent: headache, focal weakness or paresthesias, dizziness, unsteady gait, seizure, mental status changes, bladder or bowel incontinence PSYCHIATRIC: Absent: anxiety, depression, suicidal or homicidal ideation, hallucinations. PHYSICAL EXAMINATION Vital Signs - 24 hr 08/14/18 08/14/18 17:01 17:16 Temperature 97.5 F L Pulse Rate 72 Respiratory 20 Rate Blood Pressure 106/67 O2 Sat by Pulse 97 99 Oximetry (%) GENERAL: awake alert and fully oriented no acute distress HEAD: normal with no signs of trauma EYES: pupils equal, round and reactive to light EARS, NOSE, THROAT: ears normal, nares patent NECK: normal range of motion supple LUNGS: breath sounds equal clear to auscultation bilaterally no use of accessory muscle use HEART: regular rate and rhythm, normal S1 and S2 without murmur ABDOMEN: soft nontender not distended normoactive bowel sounds MUSCULOSKELETAL: normal range of motion at all joints UPPER EXTREMITIES: 2+ pulses, warm well-perfused LOWER EXTREMITIES: 2+ pulses warm, well-perfused no pitting edema NEUROLOGICAL: normal speech PSYCHIATRIC: cooperative SKIN: warm dry normal turgor Laboratory Results - last 24 hr 08/14/18 08/14/18 08/14/18 17:22 17:22 17:22 WBC 9.7 RBC 4.23 Hgb 12.7 Hct 38.5 MCV 91.0 MCH 30.1 MCHC 33.1 RDW 14.6 Plt Count 241 D MPV 9.0 Absolute Neuts (auto) 7.4 Neutrophils % 75.9 Lymphocytes % 16.5 Monocytes % 5.8 Eosinophils % 1.2 Basophils % 0.6 Nucleated RBC % 0 PT with INR INR PTT (Actin FS) D-Dimer 6049 H Sodium 141 Potassium 3.7 Chloride 102 Carbon Dioxide 30 Anion Gap 9 BUN 36 H Creatinine 1.7 H Creat Clearance w eGFR 29.14 Random Glucose 169 H Calcium 9.5 Magnesium 1.8 Total Bilirubin 0.3 AST 16 ALT 18 Alkaline Phosphatase 95 Troponin I < 0.02 Total Protein 7.1 Albumin 3.6 08/14/18 17:22 WBC RBC Hgb Hct MCV MCH MCHC RDW Plt Count MPV Absolute Neuts (auto) Neutrophils % Lymphocytes % Monocytes % Eosinophils % Basophils % Nucleated RBC % PT with INR 12.90 INR 1.09 PTT (Actin FS) 26.8 D-Dimer Sodium Potassium Chloride Carbon Dioxide Anion Gap BUN Creatinine Creat Clearance w eGFR Random Glucose Calcium Magnesium Total Bilirubin AST ALT Alkaline Phosphatase Troponin I Total Protein Albumin ASSESSMENT/PLAN: 77 year old female with history of hypertension and a right tibia fixation [address] Centeno who was discharged home from [facility] on 2018 and presented by ambulance for a witnessed syncopal episode with loss of consciousness. She reported she has been sedentary with no recent physical therapy and has not been drinking an adequate amount of fluids. She was found to have an elevated D-Dimer concerning for pulmonary embolism. High Suspicion of Acute Pulmonary Embolism in setting of Syncopy and Right Tibia Fixation/Sedentary Lifestyle -Elevated D-Dimer of 6049. Troponin is normal. Unable to have a CT angiogram of chest due to acute renal insufficiency. -She was started on a continuous IV heparin drip. -Pending VQ scan and bilateral venous dopplers to exclude DVT. -Pulmonary- Dr. Dover consulted. Syncopy Troponin normal, EKG with no acute ischemia. - monitor on telemetry. -Cardiology consulted- Dr. Martinez. Acute Renal Insufficiency received IV fluid bolus, repeat BMP in am. -will hold hctz-losartan. Hypertension low normal blood pressures -continue with amlodipine and metoprolol succinate -held HCTZ/ losartan in setting of acute renal insufficiency FEN -low sodium diet DVT -Continue with IV heparin gtt Visit type - Emergency Visit Emergency Visit: No - New Patient This patient is new to me today: Yes Date on this admission: 08/14/18 - Critical Care Critical Care patient: No
--- NOTE | 2018-08-14 20:26 | CON.CARD ---
Consult Consult Specialty:: Cardiology Reason for Consultation:: syncope r/o pe - History of Present Illness History of Present Illness: 77 year old female with history of hypertension and a right tibia fixation [address] Centeno who was discharged home from [facility] on 2018 who presented by ambulance for a witnessed syncopal episode. Patient states that she was at home and started to feel hot, lightheaded and nauseous. As per son patient was in the wheelchair and head fell back a little and eyes were rolled over. Patient was not responding for about 10-20 seconds. She denied shortness of breath or hemoptysis. She reports she has been having right sided chest pain since she left [place] and relates this to muskuloskeletal pain. She reports she has not been that active, with no physical therapy since she left [facility] and she has been sedentary. Upon evaluation in the Er she was found to have an elevated D-Dimer of 6049 and creatinine of 1.7. She was unable to have a CT angiogram of chest due to acute renal insufficiency. She was started on a continuous IV heparin drip. - History Source History Provided By: Patient, Medical Record - Past Medical History Cardio/Vascular: Yes: HTN Musculoskeletal: Yes: Chronic low back pain - Alcohol/Substance Use Hx Alcohol Use: No - Smoking History Smoking history: Never smoked Have you smoked in the past 12 months: No Home Medications - Allergies Allergies/Adverse Reactions: Allergies Allergy/AdvReac Type Severity Reaction Status Date / Time Sulfa (Sulfonamide Allergy Verified 07/14/18 13:11 Antibiotics) - Home Medications Home Medications: Ambulatory Orders Amlodipine Besylate [Norvasc -] 5 mg PO DAILY 07/14/18 Losartan/Hydrochlorothiazide [Losartan-Hctz 100-25 mg Tab] 1 each PO DAILY 07/14 Metoprolol Succinate [Toprol Xl] 50 mg PO DAILY 07/14/18 Aspirin [ASA -] 325 mg PO DAILY 08/14/18 Review of Systems - Review of Systems Constitutional: reports: No Symptoms Eyes: reports: No Symptoms HENT: reports: No Symptoms Neck: reports: No Symptoms Cardiovascular: reports: No Symptoms Gastrointestinal: reports: No Symptoms Genitourinary: reports: No Symptoms Breasts: reports: No Symptoms Reported Musculoskeletal: reports: No Symptoms Integumentary: reports: No Symptoms Neurological: reports: Syncope Endocrine: reports: No Symptoms Hematology/Lymphatic: reports: No Symptoms Psychiatric: reports: No Symptoms Vital Signs: Vital Signs Temperature 97.5 F L 08/14/18 17:01 Pulse Rate 72 08/14/18 17:01 Respiratory Rate 20 08/14/18 17:01 Blood Pressure 106/67 08/14/18 17:01 O2 Sat by Pulse Oximetry (%) 99 08/14/18 17:16 Constitutional: Yes: Well Nourished, No Distress, Calm Eyes: Yes: WNL, Conjunctiva Clear, EOM Intact HENT: Yes: WNL, Atraumatic, Normocephalic Neck: Yes: WNL, Supple, Trachea Midline Respiratory: Yes: WNL, Regular, CTA Bilaterally Gastrointestinal: Yes: WNL, Normal Bowel Sounds Renal/: Yes: WNL Cardiovascular: Yes: WNL, Regular Rate and Rhythm Musculoskeletal: Yes: WNL Extremities: Yes: WNL Integumentary: Yes: WNL Neurological: Yes: WNL, Alert, Oriented ...Motor Strength: WNL Psychiatric: Yes: WNL, Alert, Oriented - Other Data Labs, Other Data: CBC, BMP 08/14/18 17:22 08/14/18 17:22 INR, PTT INR 1.09 (0.83-1.09) 08/14/18 17:22 Troponin, BNP 08/14/18 17:22 Troponin I < 0.02 Troponin, BNP 08/14/18 17:22 Troponin I < 0.02 Imaging - Results Chest X-ray: Image Reviewed (no i/e) EKG: Image Reviewed (sr rep abn) Assessment/Plan htn cri syncope s/p R tibia fixation r femoral non-obstructive DVT Plan V/Q scan ECHO IV heparin telemetry will f/u
[2018-08-15 03:10] LABS: EPI CELLS 2.8 /HPF (0-5/HPF); URINE APPEARANCE CLEAR; URINE BACTERIA 23.5 /hpf (NEGATIVE); URINE BILIRUBIN NEGATIVE (NEGATIVE); URINE CASTS 2 /lpf (0-8); URINE COLOR YELLOW; URINE GLUCOSE (UA) NEGATIVE (NEGATIVE); URINE KETONE NEGATIVE (NEGATIVE); URINE LEUK ESTERASE 1+ (NEGATIVE); URINE NITRITE NEGATIVE (NEGATIVE); URINE PROTEIN NEGATIVE (NEGATIVE); URINE RBC 2 /hpf (0-4); URINE UROBILINOGEN 0.2 mg/dL (0.2-1.0); URINE WBC 6 /hpf (0-5)
[2018-08-15 09:36] LABS: BASO % 0.7 % (0-2.0); EOS % 1.6 % (0-4.5); HEMATOCRIT 36.1 % (32.4-45.2); HEMOGLOBIN 11.9 GM/dL (10.7-15.3); LYMPH % 24.9 % (8-40); MCH 29.8 pg (25.7-33.7); MCHC 32.9 g/dl (32.0-36.0); MEAN CELL VOLUME 90.6 fl (80-96); MEAN PLT VOLUME 9.1 fl (7.5-11.1); MONO % 5.6 % (3.8-10.2); NEUT % 67.2 % (42.8-82.8); PLATELET COUNT 227 K/MM3 (134-434); RBC 3.98 M/mm3 (3.60-5.2); RDW 14.6 % (11.6-15.6); WHITE BLOOD COUNT 9.3 K/mm3 (4.0-10.0)
--- NOTE | 2018-08-15 09:42 | CON.ORTH ---
Consult Reason for Consultation:: s/p right ankle orif - Past Medical History Cardio/Vascular: Yes: HTN Musculoskeletal: Yes: Chronic low back pain - Alcohol/Substance Use Hx Alcohol Use: No - Smoking History Smoking history: Never smoked Have you smoked in the past 12 months: No Home Medications - Allergies Allergies/Adverse Reactions: Allergies Allergy/AdvReac Type Severity Reaction Status Date / Time Sulfa (Sulfonamide Allergy Verified 07/14/18 13:11 Antibiotics) - Home Medications Home Medications: Ambulatory Orders Amlodipine Besylate [Norvasc -] 5 mg PO DAILY 07/14/18 Losartan/Hydrochlorothiazide [Losartan-Hctz 100-25 mg Tab] 1 each PO DAILY 07/14 Metoprolol Succinate [Toprol Xl] 50 mg PO DAILY 07/14/18 Aspirin [ASA -] 325 mg PO DAILY 08/14/18 Physical Exam for Ortho Vital Signs: Vital Signs Temperature 97.9 F 08/15/18 07:20 Pulse Rate 66 08/15/18 07:20 Respiratory Rate 16 08/15/18 07:20 Blood Pressure 146/68 08/15/18 07:20 O2 Sat by Pulse Oximetry (%) 98 08/15/18 07:20 Labs: INR, PTT INR 1.09 (0.83-1.09) 08/14/18 17:22 - Lower Extremity Ankle: Yes: Right, Other (incisions well healed, good ROM of ankle, nvi) Assessment/Plan 77 year old female with history of hypertension and a right ankle ORIF [address] Banerjee who was discharged home from [facility] on 07/29/2018 who presented by ambulance for a witnessed syncopal episode. Patient states that she was at home and started to feel hot, lightheaded and nauseous. As per son patient was in the wheelchair and head fell back a little and eyes were rolled over. Patient was not responding for about 10-20 seconds. She denied shortness of breath or hemoptysis. She reports she has been having right sided chest pain since she left [place] and relates this to muskuloskeletal pain. She reports she has not been that active, with no physical therapy rehabilitation since she left [facility] and she reported she has been sedentary. a/p s/p right ankle orif- r/o PE Pt being admitted to r/o PE xrays ordered of right ankle maintain boot- ok to take off at times NWB RLE d/w Dr. Banerjee
[2018-08-15] MEDS ORDERED: LOSARTAN 50MG/HCTZ 12.5MG 1 TAB (FP) PO SCH (10:00)
--- NOTE | 2018-08-15 10:00 | EKG ---
Test Reason : Blood Pressure : / mmHG Vent. Rate : 068 BPM Atrial Rate : 068 BPM P-R Int : 166 ms QRS Dur : 080 ms QT Int : 402 ms P-R-T Axes : 036 -03 035 degrees QTc Int : 427 ms NORMAL SINUS RHYTHM MINIMAL VOLTAGE CRITERIA FOR LVH, MAY BE NORMAL VARIANT BORDERLINE ECG WHEN COMPARED WITH ECG OF 14-JUL-2018 15:25, NO SIGNIFICANT CHANGE WAS FOUND Confirmed by ANABELL MOLINA MD ([id number]) on 08/15/2018 10:00:44 AM Referred By: Confirmed By:ANABELL MOLINA MD
[2018-08-15] MEDS: amLODIPine BESYLATE 5 MG TABLET (FP) PO SCH (10:28)
[2018-08-15] MEDS: ASPIRIN 325 MG TABLET PO SCH (10:28)
[2018-08-15 11:11] LABS: ANION GAP 11 MMOL/L (8-16); BLOOD UREA NITROGEN 36 mg/dL (7-18); CALCIUM 9.8 mg/dL (8.5-10.1); CHLORIDE 105 mmol/L (98-107); CO2 26 mmol/L (21-32); CREATININE 1.2 mg/dL (0.55-1.3); GLUCOSE,RANDOM 172 mg/dL (74-106); MAGNESIUM 1.9 mg/dL (1.8-2.4); POTASSIUM 3.4 mmol/L (3.5-5.1); SODIUM 141 mmol/L (136-145)
--- NOTE | 2018-08-15 13:32 | PN ---
Progress Note (short form) - Note Progress Note: pt seen/ examined in Er chart reviewed awake/ comfortable denies cp/sob Vital Signs Temp 98.2 F 08/15/18 13:13 Pulse 72 08/15/18 13:13 Resp 18 08/15/18 13:13 BP 145/58 L 08/15/18 13:13 Pulse Ox 97 08/15/18 13:13 Intake & Output 08/14/18 08/15/18 08/15/18 23:59 11:59 23:59 Weight 180 lb Other: Voiding Method Bedpan Height 5 ft 2 in Body Mass Index (BMI) 32.9 Weight Measurement Method Est/Stated by Patient Active Medications Amlodipine Besylate (Norvasc -) 5 mg PO DAILY [facility] Last Admin: 08/15/18 10:28 Dose: 5 mg Aspirin (Asa -) 325 mg PO DAILY [facility] Last Admin: 08/15/18 10:28 Dose: 325 mg Heparin Sodium (Porcine) 25, (000 unit/ Sodium Chloride) 500 mls @ 36 mls/hr IV TITR [facility]; Protocol Last Titration: 08/15/18 05:08 Dose: 1,400 unit/hr, 28 mls/hr Metoprolol Succinate (Toprol Xl -) 50 mg PO DAILY [facility] Last Admin: 08/15/18 10:28 Dose: 50 mg Potassium Chloride (Potassium Chloride Oral Liquid) 40 meq PO ONCE ONE Stop: 08/15/18 14:01 CBC, BMP 08/15/18 09:15 08/15/18 09:15 Physical Exam awake. comfortable lungs- clear cvs- s1, s2 regular abd - soft, non tender ext- rle-- in brace . swelling + neuro- alert/ awake a/p dvt s/p ankle surgery PE ? arf continue present care cr better hctz/ lisinopril held heparin drip-- monitoring per guidelines pulmonary to follow will follow discussed with pt/ family who is at bedside Problem List - Problems (1) Acute kidney injury Code(s): N17.9 - ACUTE KIDNEY FAILURE, UNSPECIFIED (2) Syncope Code(s): R55 - SYNCOPE AND COLLAPSE Qualifiers: Syncope type: unspecified Qualified Code(s): R55 - Syncope and collapse (3) Ankle fracture Code(s): S82.899A - OTH FRACTURE OF UNSP LOWER LEG, INIT FOR CLOS FX
--- NOTE | 2018-08-15 13:38 | PN ---
Progress Note, Physician History of Present Illness: 77 year old female with history of hypertension and a right tibia fixation [address] Centeno who was discharged home from [facility] on 2018 who presented by ambulance for a witnessed syncopal episode. Patient states that she was at home and started to feel hot, lightheaded and nauseous. As per son patient was in the wheelchair and head fell back a little and eyes were rolled over. Patient was not responding for about 10-20 seconds. She denied shortness of breath or hemoptysis. She reports she has been having right sided chest pain since she left [place] and relates this to muskuloskeletal pain. She reports she has not been that active, with no physical therapy since she left [facility] and she has been sedentary. Upon evaluation in the Er she was found to have an elevated D-Dimer of 6049 and creatinine of 1.7. She was unable to have a CT angiogram of chest due to acute renal insufficiency. She was started on a continuous IV heparin drip. - Current Medication List Current Medications: Active Medications Amlodipine Besylate (Norvasc -) 5 mg PO DAILY [facility] Last Admin: 08/15/18 10:28 Dose: 5 mg Aspirin (Asa -) 325 mg PO DAILY [facility] Last Admin: 08/15/18 10:28 Dose: 325 mg Heparin Sodium (Porcine) 25, (000 unit/ Sodium Chloride) 500 mls @ 36 mls/hr IV TITR [facility]; Protocol Last Titration: 08/15/18 05:08 Dose: 1,400 unit/hr, 28 mls/hr Metoprolol Succinate (Toprol Xl -) 50 mg PO DAILY [facility] Last Admin: 08/15/18 10:28 Dose: 50 mg Potassium Chloride (Potassium Chloride Oral Liquid) 40 meq PO ONCE ONE Stop: 08/15/18 14:01 - Objective Vital Signs: Vital Signs Temperature 98.2 F 08/15/18 13:13 Pulse Rate 72 08/15/18 13:13 Respiratory Rate 18 08/15/18 13:13 Blood Pressure 145/58 L 08/15/18 13:13 O2 Sat by Pulse Oximetry (%) 97 08/15/18 13:13 Eyes: Yes: WNL, Conjunctiva Clear, EOM Intact HENT: Yes: WNL, Atraumatic, Normocephalic Neck: Yes: WNL, Supple, Trachea Midline Cardiovascular: Yes: WNL, Regular Rate and Rhythm Respiratory: Yes: WNL, Regular, CTA Bilaterally Gastrointestinal: Yes: WNL, Normal Bowel Sounds Genitourinary: Yes: WNL Musculoskeletal: Yes: WNL Extremities: Yes: WNL Edema: No Integumentary: Yes: WNL Neurological: Yes: WNL, Alert, Oriented ...Motor Strength: WNL Psychiatric: Yes: WNL Labs: CBC, BMP 08/15/18 09:15 08/15/18 09:15 INR, PTT INR 1.09 (0.83-1.09) 08/14/18 17:22 Assessment/Plan htn cri syncope s/p R tibia fixation r femoral non-obstructive DVT Plan V/Q scan ECHO IV heparin telemetry will f/u
[2018-08-15] MEDS ORDERED: POTASSIUM CHLORIDE ORAL LIQUID 20 MEQ/15 ML PO ONE (14:00)
--- NOTE | 2018-08-15 14:56 | PN ---
Progress Note (short form) - Note Progress Note: PULMONARY CONSULTATION DICTATED 08/15/18 IMP SYNCOPE ACUTE PULMONARY EMBOLISM PROVOKED + V/Q SCAN S/P ORIF R ANKLE HTN NON-OCCLUSIVE THROMBUS MID-RIGHT SUPERFICIAL FEMORAL VEIN LESVIA PLAN ANTICOAGULATION CE ECHO IVF HEAD CT MONITOR WADE KELLY Problem List - Problems (1) Pulmonary embolism Code(s): I26.99 - OTHER PULMONARY EMBOLISM WITHOUT ACUTE COR PULMONALE (2) Acute kidney injury Code(s): N17.9 - ACUTE KIDNEY FAILURE, UNSPECIFIED (3) Syncope Code(s): R55 - SYNCOPE AND COLLAPSE Qualifiers: Syncope type: unspecified Qualified Code(s): R55 - Syncope and collapse (4) Ankle fracture Code(s): S82.899A - OTH FRACTURE OF UNSP LOWER LEG, INIT FOR CLOS FX (5) HTN (hypertension) Code(s): I10 - ESSENTIAL (PRIMARY) HYPERTENSION (6) Trimalleolar fracture of right ankle Code(s): S82.851A - DISPLACED TRIMALLEOLAR FRACTURE OF RIGHT LOWER LEG, INIT Qualifiers: Encounter type: subsequent encounter
--- NOTE | 2018-08-15 20:59 | CONS ---
DATE OF CONSULTATION: 08/15/2018 PULMONARY CONSULTATION REFERRING PHYSICIAN: Long Farley M.D. HISTORY OF PRESENT ILLNESS: The patient is a 77-year-old white female with a past medical history of hypertension, status post recent right tibial fixation 5 weeks ago secondary to fracture, discharged home from [facility] on July 29, presented to [facility] on August 14 status post syncopal episode. Patient apparently went home and started to feel lightheaded and nauseous. As per patient's family, she fell back, eyes rolled over, and was unresponsive approximately 10 to 20 seconds. There was no chest pressure or shortness of breath prior to this episode. She apparently has some right-sided chest pain since she left rehabilitation, which she attributed to musculoskeletal etiology. On admission, she was noted to have an elevated D-dimer, underwent a duplex lower extremities which revealed nonocclusive thrombus in a right superficial femoral vein. She underwent a VQ scan which revealed bilateral perfusion defects, V/Q mismatchh bilaterally c/w with high probability of pulmonary embolism. The patient denies any previous history of PE. She is a nonsmoker. There is no history of occupational exposure to chemicals or fumes. PAST MEDICAL HISTORY: Again includes hypertension. SOCIAL HISTORY: Nonsmoker. No occupational exposures. CURRENT MEDICATIONS: Include heparin, metoprolol, Norvasc, aspirin. PHYSICAL EXAMINATION: GENERAL: The patient is an elderly white female, awake and alert, in no acute distress, she is afebrile. VITAL SIGNS: Blood pressure 145/66, respiratory rate 20, and O2 saturation is 98% on room air. HEENT: Normocephalic, atraumatic. NECK: Supple. HEART: Regular S1, S2. CHEST: Clear. ABDOMEN: Soft, bowel sounds positive. EXTREMITIES: No cyanosis, edema. LABORATORY: WBC is 9.3, hemoglobin 11.9, hematocrit 36.1 with platelet count of 227,000 with 67 polycytes, 24 lymphocytes, 5 monocytes, and 1 eosinophils. PTT is 115, BUN is initially 36, creatinine 1.7; repeat BUN 36, creatinine 1.2. VQ scan as noted earlier. Noted multiple bilateral perfusion defects, mismatched ventilation consistent with high probability of PE. Chest x-ray, no infiltrates, no effusions. IMPRESSION: 1. Syncope likely secondary to acute pulmonary embolism, provoked. 2. Status post right ankle fracture status post open reduction, internal fixation right ankle. 3. Hypertension. 4. Nonocclusive thrombus mid right superficial femoral vein. 5. Acute kidney injury. PLAN: Anticoagulation, cardiac enzymes, obtain echo, IV fluids, monitor electrolytes, CT of the head. MARSHA KELLY M.D. [id number] MTDD
[2018-08-15] MEDS: HEPARIN - 25,000 UNIT in SODIUM CHLORIDE 495 ML IV SCH (22:34)
[2018-08-16] MEDS: ASPIRIN 325 MG TABLET PO SCH (09:30)
[2018-08-16] MEDS: amLODIPine BESYLATE 5 MG TABLET (FP) PO SCH (09:31)
--- NOTE | 2018-08-16 10:30 | PN ---
Progress Note, Physician History of Present Illness: PULMONARY ALERT,NO DISTRESS,-CP,-SOB - Current Medication List Current Medications: Active Medications Amlodipine Besylate (Norvasc -) 5 mg PO DAILY [facility] Last Admin: 08/16/18 09:31 Dose: 5 mg Aspirin (Asa -) 325 mg PO DAILY [facility] Last Admin: 08/16/18 09:30 Dose: 325 mg Heparin Sodium (Porcine) 25, (000 unit/ Sodium Chloride) 500 mls @ 36 mls/hr IV TITR [facility]; Protocol Last Admin: 08/15/18 22:34 Dose: 1,200 unit/hr, 24 mls/hr Metoprolol Succinate (Toprol Xl -) 50 mg PO DAILY [facility] Last Admin: 08/16/18 09:31 Dose: 50 mg - Objective Vital Signs: Vital Signs Temperature 98.2 F 08/16/18 09:00 Pulse Rate 68 08/16/18 09:00 Respiratory Rate 18 08/16/18 09:00 Blood Pressure 122/66 08/16/18 09:00 O2 Sat by Pulse Oximetry (%) 96 08/15/18 21:00 Constitutional: Yes: Well Nourished, Calm Eyes: Yes: WNL HENT: Yes: WNL Neck: Yes: WNL Cardiovascular: Yes: Regular Rate and Rhythm, S1, S2 Respiratory: Yes: CTA Bilaterally Gastrointestinal: Yes: Normal Bowel Sounds, Soft Extremities: Yes: WNL Edema: No Labs: CBC, BMP Problem List - Problems (1) Pulmonary embolism Code(s): I26.99 - OTHER PULMONARY EMBOLISM WITHOUT ACUTE COR PULMONALE (2) Acute kidney injury Code(s): N17.9 - ACUTE KIDNEY FAILURE, UNSPECIFIED (3) Syncope Code(s): R55 - SYNCOPE AND COLLAPSE Qualifiers: Syncope type: unspecified Qualified Code(s): R55 - Syncope and collapse (4) Ankle fracture Code(s): S82.899A - OTH FRACTURE OF UNSP LOWER LEG, INIT FOR CLOS FX (5) HTN (hypertension) Code(s): I10 - ESSENTIAL (PRIMARY) HYPERTENSION (6) Trimalleolar fracture of right ankle Code(s): S82.851A - DISPLACED TRIMALLEOLAR FRACTURE OF RIGHT LOWER LEG, INIT Qualifiers: Encounter type: subsequent encounter Assessment/Plan IMP SYNCOPE ACUTE PULMONARY EMBOLISM PROVOKED S/P ORIF R ANKLE HTN NON-OCCLUSIVE THROMBUS MID-RIGHT SUPERFICIAL FEMORAL VEIN LESVIA PLAN ANTICOAGULATION ECHO IVF HEAD CT MONITOR WADE KELLY Problem List - Problems (1) Pulmonary embolism Code(s): I26.99 - OTHER PULMONARY EMBOLISM WITHOUT ACUTE COR PULMONALE (2) Acute kidney injury Code(s): N17.9 - ACUTE KIDNEY FAILURE, UNSPECIFIED (3) Syncope Code(s): R55 - SYNCOPE AND COLLAPSE Qualifiers: Syncope type: unspecified Qualified Code(s): R55 - Syncope and collapse (4) Ankle fracture Code(s): S82.899A - OTH FRACTURE OF UNSP LOWER LEG, INIT FOR CLOS FX (5) HTN (hypertension) Code(s): I10 - ESSENTIAL (PRIMARY) HYPERTENSION (6) Trimalleolar fracture of right ankle Code(s): S82.851A - DISPLACED TRIMALLEOLAR FRACTURE OF RIGHT LOWER LEG, INIT Qualifiers: Encounter type: subsequent encounter
--- NOTE | 2018-08-16 12:26 | PN ---
Progress Note (short form) - Note Progress Note: Has pain in lower back and experiences numbness to legs when ambulating Events noted on heparin Gtt at bedside no SOB, chest pain Vital Signs - 24 hr 08/15/18 08/15/18 08/15/18 13:13 14:38 17:00 Temperature 98.2 F 97.8 F 98.0 F Pulse Rate 69 63 Pulse Rate [ 72 Right Radial] Respiratory 18 18 20 Rate Blood Pressure 146/64 145/66 Blood Pressure 145/58 L [Left Arm] O2 Sat by Pulse 97 98 Oximetry (%) 08/15/18 08/15/18 08/16/18 20:15 21:00 01:41 Temperature 98.5 F 97.9 F Pulse Rate 75 68 Pulse Rate [ Right Radial] Respiratory 20 20 Rate Blood Pressure 137/74 141/64 Blood Pressure [Left Arm] O2 Sat by Pulse 96 Oximetry (%) 08/16/18 08/16/18 05:45 09:00 Temperature 98.0 F 98.2 F Pulse Rate 62 68 Pulse Rate [ Right Radial] Respiratory 20 18 Rate Blood Pressure 139/69 122/66 Blood Pressure [Left Arm] O2 Sat by Pulse 98 Oximetry (%) Current Medications Generic Name Dose Route Start Last Admin Trade Name Freq PRN Reason Stop Dose Admin Amlodipine Besylate 5 mg 08/15/18 10:00 08/16/18 09:31 Norvasc - PO 5 mg DAILY [facility] Administration Aspirin 325 mg 08/15/18 10:00 08/16/18 09:30 Asa - PO 325 mg DAILY [facility] Administration Heparin Sodium (Porcine) 25, 500 mls @ 36 mls/hr 08/14/18 18:45 08/15/18 22: 34 000 unit/ Sodium Chloride IV 1,200 unit/hr TITR [facility] 24 mls/hr Administration Protocol 1,800 UNIT/HR Metoprolol Succinate 50 mg 08/15/18 10:00 08/16/18 09:31 Toprol Xl - PO 50 mg DAILY [facility] Administration Laboratory Results - last 24 hr 08/15/18 08/16/18 19:00 06:26 PTT (Actin FS) 135.8 H 116.6 H S1 s2 RRR Lungs clear Abd- soft, NT right foot in boot no edema A/P S/P Rt ankle ORIF Acute PE HTN Acute kidney injury -- resolved -- dc ASA -- on heparin gtt -- Pulmonary eval noted -- will need halfway anticoagluation -- PT eval Problem List - Problems (1) Acute kidney injury Code(s): N17.9 - ACUTE KIDNEY FAILURE, UNSPECIFIED (2) Pulmonary embolism Code(s): I26.99 - OTHER PULMONARY EMBOLISM WITHOUT ACUTE COR PULMONALE (3) Syncope Code(s): R55 - SYNCOPE AND COLLAPSE Qualifiers: Syncope type: unspecified Qualified Code(s): R55 - Syncope and collapse (4) Ankle fracture Code(s): S82.899A - OTH FRACTURE OF UNSP LOWER LEG, INIT FOR CLOS FX (5) HTN (hypertension) Code(s): I10 - ESSENTIAL (PRIMARY) HYPERTENSION (6) Hypothyroidism Code(s): E03.9 - HYPOTHYROIDISM, UNSPECIFIED
[2018-08-16] MEDS: HEPARIN - 25,000 UNIT in SODIUM CHLORIDE 495 ML IV SCH ×2 (12:27→20:15)
--- NOTE | 2018-08-16 12:27 | ECHO ---
Version: 1 Name: TERESA BUCKNER Exam: Adult Echocardiogram Study Date: 08/16/2018, 11:00 AM Age: 77 Years MMode/2D Measurements & Calculations IVSd: 0.89 cm LVIDs: 2.8 cm LVIDd: 4.4 cm LVPWd: 0.70 cm LVOT diam: 1.99 cm Ao root diam: 2.9 cm LA dimension: 3.7 cm Doppler Measurements & Calculations MV E max peyman: 68.6 cm/sec Med E/e': 13.5 MV A max peyman: 100.7 cm/sec Med Peak E' Peyman: 5.1 cm/sec MV E/A: 0.68 Lat E/e': 8.9 Lat Peak E' Peyman: 7.7 cm/sec MR max P.2 mmHg Ao max P.9 mmHg LV V1 mean: 61.4 cm/sec Ao V2 max: 149.4 cm/sec LV V1 mean P.62 mmHg AI P1/2t: 634.8 msec PI end-d peyman: 111.3 cm/sec TR max peyman: 222.6 cm/sec TR max P.8 mmHg Left Ventricle The left ventricular size, thickness and function are normal. The left ventricular ejection fraction is normal. Ejection Fraction = 65%. The transmitral spectral Doppler flow pattern is suggestive of impa ired LV relaxation. Right Ventricle The right ventricle is normal in size and function. No evidence of RV strain. Atria Normal left and right atrial size and function. Mitral Valve There is mild mitral annular calcification. Tricuspid Valve The tricuspid valve is not well visualized, but is grossly normal. There is trace tricuspid regurgit ation. Right ventricular systolic pressure is normal. Aortic Valve There is mild aortic sclerosis.;. No hemodynamically significant valvular aortic stenosis. Mild aort ic regurgitation. Pulmonic Valve The pulmonic valve is not well visualized. Great Vessels The aortic root is normal size. Pericardium/Pleura There is no pericardial effusion. Summary Statements The left ventricular size, thickness and function are normal. Ejection Fraction = 65%. The right ventricle is normal in size and function. Normal left and right atrial size and function. There is mild aortic sclerosis.; No hemodynamically significant valvular aortic stenosis. Mild aorti c regurgitation. There is mild mitral annular calcification. MD Liliam Bolton08/16/2018, 11:26 AM Ordering Physician: Segundo Dover Referring Physician: ONUR ALLEN Performed By: Sridevi Morgan
--- NOTE | 2018-08-16 14:29 | PN ---
Progress Note, Physician Chief Complaint: Pt A&Ox3; at bedside. No chest pain or dyspnea. History of Present Illness: The patient is a 77 year old female with a past medical history of HTN and right tib fib fixation ([address] Banerjee) here today for evaluation of syncopal episode. The patient reports that she doesnt remember passing out but remembers feeling groggy and feeling hot after her episode. According to the patients son, she leaned back in her wheelchair and her eyes rolled back when she passed out. Patient reports that this never happened before and currently complains of some lightheadedness. Patient denies headache. Denies fever, chills. Denies chest pain, shortness of breath. Denies nausea, vomiting, diarrhea, abdominal pain. Denies neurological symptoms. Allergies: sulfa PCP: Bassem Smiley - Current Medication List Current Medications: Active Medications Amlodipine Besylate (Norvasc -) 5 mg PO DAILY [facility] Last Admin: 08/16/18 09:31 Dose: 5 mg Aspirin (Asa -) 325 mg PO DAILY [facility] Last Admin: 08/16/18 09:30 Dose: 325 mg Heparin Sodium (Porcine) 25, (000 unit/ Sodium Chloride) 500 mls @ 36 mls/hr IV TITR [facility]; Protocol Last Admin: 08/16/18 12:27 Dose: 1,050 unit/hr, 21 mls/hr Metoprolol Succinate (Toprol Xl -) 50 mg PO DAILY [facility] Last Admin: 08/16/18 09:31 Dose: 50 mg - Objective Vital Signs: Vital Signs Temperature 98.2 F 08/16/18 09:00 Pulse Rate 68 08/16/18 09:00 Respiratory Rate 18 08/16/18 09:00 Blood Pressure 122/66 08/16/18 09:00 O2 Sat by Pulse Oximetry (%) 98 08/16/18 09:00 Eyes: Yes: WNL HENT: Yes: WNL Neck: Yes: WNL Labs: CBC, BMP 08/15/18 09:15 08/15/18 09:15 INR, PTT INR 1.09 (0.83-1.09) 08/14/18 17:22 Abnormal Lab Results 08/15/18 08/16/18 19:00 06:26 PTT (Actin FS) 135.8 H 116.6 H Problem List - Problems (1) Hyperlipidemia Assessment/Plan: f/u lipid profile Code(s): E78.5 - HYPERLIPIDEMIA, UNSPECIFIED (2) Pulmonary embolism Assessment/Plan: On anticoagulation (IV heparin). Consider discontinuing ASA, unless deemed necessary by neuroloy (pt gives hx of stress pharmacoologic MIBI done 5 months ago that was negative for ischemia). Risk of bleed is substantially higher when on both systemic anticoagulation (? for apixaban as outpatient) and antiplatelet such as ASA. (If ASA is thought necessary, would strongly consider reducing dose to 81 mg daily). Code(s): I26.99 - OTHER PULMONARY EMBOLISM WITHOUT ACUTE COR PULMONALE (3) Syncope Assessment/Plan: No arrhythmias or pauses on telemetry. ECHO pending. Stress MIBI negative for ischemia 5 months ago. F/u orthostatic vital signs. Etiology of syncope likely vagal (seated for long period of time; had a large meal; ?stood up (though uses wheelchair); BUN/Cr elevated on admission). Maintain hydration. Code(s): R55 - SYNCOPE AND COLLAPSE Qualifiers: Syncope type: unspecified Qualified Code(s): R55 - Syncope and collapse (4) Ankle fracture Code(s): S82.899A - OTH FRACTURE OF UNSP LOWER LEG, INIT FOR CLOS FX (5) HTN (hypertension) Code(s): I10 - ESSENTIAL (PRIMARY) HYPERTENSION (6) Hypothyroidism Code(s): E03.9 - HYPOTHYROIDISM, UNSPECIFIED
[2018-08-17 06:41] LABS: BASO % 0.6 % (0-2.0); EOS % 2.3 % (0-4.5); HEMATOCRIT 34.7 % (32.4-45.2); HEMOGLOBIN 11.7 GM/dL (10.7-15.3); LYMPH % 38.2 % (8-40); MCH 30.4 pg (25.7-33.7); MCHC 33.7 g/dl (32.0-36.0); MEAN CELL VOLUME 90.3 fl (80-96); MEAN PLT VOLUME 8.8 fl (7.5-11.1); MONO % 8.3 % (3.8-10.2); NEUT % 50.6 % (42.8-82.8); PLATELET COUNT 216 K/MM3 (134-434); RBC 3.84 M/mm3 (3.60-5.2); RDW 14.5 % (11.6-15.6); WHITE BLOOD COUNT 8.1 K/mm3 (4.0-10.0)
[2018-08-17] MEDS: HEPARIN - 25,000 UNIT in SODIUM CHLORIDE 495 ML IV SCH (08:32)
[2018-08-17] MEDS: ASPIRIN 325 MG TABLET PO SCH (09:05)
[2018-08-17] MEDS: amLODIPine BESYLATE 5 MG TABLET (FP) PO SCH (09:05)
--- NOTE | 2018-08-17 10:51 | PN ---
Progress Note (short form) - Note Progress Note: Ortho Pt seen and examined s/p right ankle orif Selected Entries 08/17/18 09:00 Temperature 98 F Pulse Rate 76 Respiratory 18 Rate Blood Pressure 132/66 incision c/d/i, calf soft ,nt nvi xrays show healing fx in good position a/p AC for PE continue walker boot NWB ROM exercises f/u in the office n 2 weeks
--- NOTE | 2018-08-17 11:03 | PN ---
Progress Note, Physician History of Present Illness: pulmonary alert,no distress,-cp,-sob. - Current Medication List Current Medications: Active Medications Amlodipine Besylate (Norvasc -) 5 mg PO DAILY [facility] Last Admin: 08/17/18 09:05 Dose: 5 mg Apixaban (Eliquis -) 10 mg PO BID [facility] Metoprolol Succinate (Toprol Xl -) 50 mg PO DAILY [facility] Last Admin: 08/17/18 09:05 Dose: 50 mg - Objective Vital Signs: Vital Signs Temperature 98 F 08/17/18 09:00 Pulse Rate 76 08/17/18 09:00 Respiratory Rate 18 08/17/18 09:00 Blood Pressure 132/66 08/17/18 09:00 O2 Sat by Pulse Oximetry (%) 97 08/16/18 21:00 Constitutional: Yes: Well Nourished, Calm Eyes: Yes: WNL HENT: Yes: WNL Neck: Yes: WNL Cardiovascular: Yes: Regular Rate and Rhythm, S1, S2 Respiratory: Yes: CTA Bilaterally Gastrointestinal: Yes: Normal Bowel Sounds, Soft Extremities: Yes: WNL Edema: No Labs: CBC, BMP 08/17/18 05:30 08/15/18 09:15 INR, PTT INR 1.09 (0.83-1.09) 08/14/18 17:22 Problem List - Problems (1) Pulmonary embolism Code(s): I26.99 - OTHER PULMONARY EMBOLISM WITHOUT ACUTE COR PULMONALE (2) Acute kidney injury Code(s): N17.9 - ACUTE KIDNEY FAILURE, UNSPECIFIED (3) Syncope Code(s): R55 - SYNCOPE AND COLLAPSE Qualifiers: Syncope type: unspecified Qualified Code(s): R55 - Syncope and collapse (4) Ankle fracture Code(s): S82.899A - OTH FRACTURE OF UNSP LOWER LEG, INIT FOR CLOS FX (5) HTN (hypertension) Code(s): I10 - ESSENTIAL (PRIMARY) HYPERTENSION (6) Trimalleolar fracture of right ankle Code(s): S82.851A - DISPLACED TRIMALLEOLAR FRACTURE OF RIGHT LOWER LEG, INIT Qualifiers: Encounter type: subsequent encounter Assessment/Plan IMP SYNCOPE ACUTE PULMONARY EMBOLISM PROVOKED S/P ORIF R ANKLE HTN NON-OCCLUSIVE THROMBUS MID-RIGHT SUPERFICIAL FEMORAL VEIN LESVIA PLAN ELIQUIS HEAD CT MONITOR WADE KELLY Problem List - Problems (1) Pulmonary embolism Code(s): I26.99 - OTHER PULMONARY EMBOLISM WITHOUT ACUTE COR PULMONALE (2) Acute kidney injury Code(s): N17.9 - ACUTE KIDNEY FAILURE, UNSPECIFIED (3) Syncope Code(s): R55 - SYNCOPE AND COLLAPSE Qualifiers: Syncope type: unspecified Qualified Code(s): R55 - Syncope and collapse (4) Ankle fracture Code(s): S82.899A - OTH FRACTURE OF UNSP LOWER LEG, INIT FOR CLOS FX (5) HTN (hypertension) Code(s): I10 - ESSENTIAL (PRIMARY) HYPERTENSION (6) Trimalleolar fracture of right ankle Code(s): S82.851A - DISPLACED TRIMALLEOLAR FRACTURE OF RIGHT LOWER LEG, INIT Qualifiers: Encounter type: subsequent encounter
--- NOTE | 2018-08-17 11:59 | PN ---
Progress Note, Physician History of Present Illness: 77 year old female with history of hypertension and a right tibia fixation [address] Centeno who was discharged home from [facility] on 2018 who presented by ambulance for a witnessed syncopal episode. Patient states that she was at home and started to feel hot, lightheaded and nauseous. As per son patient was in the wheelchair and head fell back a little and eyes were rolled over. Patient was not responding for about 10-20 seconds. She denied shortness of breath or hemoptysis. She reports she has been having right sided chest pain since she left [place] and relates this to muskuloskeletal pain. She reports she has not been that active, with no physical therapy since she left [facility] and she has been sedentary. Upon evaluation in the Er she was found to have an elevated D-Dimer of 6049 and creatinine of 1.7. She was unable to have a CT angiogram of chest due to acute renal insufficiency. She was started on a continuous IV heparin drip. - Current Medication List Current Medications: Active Medications Amlodipine Besylate (Norvasc -) 5 mg PO DAILY [facility] Last Admin: 08/17/18 09:05 Dose: 5 mg Apixaban (Eliquis -) 10 mg PO BID [facility] Metoprolol Succinate (Toprol Xl -) 50 mg PO DAILY [facility] Last Admin: 08/17/18 09:05 Dose: 50 mg - Objective Vital Signs: Vital Signs Temperature 98 F 08/17/18 09:00 Pulse Rate 76 08/17/18 09:00 Respiratory Rate 18 08/17/18 09:00 Blood Pressure 132/66 08/17/18 09:00 O2 Sat by Pulse Oximetry (%) 97 08/16/18 21:00 Eyes: Yes: WNL, Conjunctiva Clear, EOM Intact HENT: Yes: WNL, Atraumatic, Normocephalic Neck: Yes: WNL, Supple, Trachea Midline Cardiovascular: Yes: WNL, Regular Rate and Rhythm Respiratory: Yes: WNL, Regular, CTA Bilaterally Gastrointestinal: Yes: WNL, Normal Bowel Sounds Genitourinary: Yes: WNL Musculoskeletal: Yes: WNL Extremities: Yes: WNL Edema: No Integumentary: Yes: WNL Neurological: Yes: WNL, Alert, Oriented ...Motor Strength: WNL Psychiatric: Yes: WNL Labs: CBC, BMP 08/17/18 05:30 08/15/18 09:15 INR, PTT INR 1.09 (0.83-1.09) 08/14/18 17:22 Assessment/Plan - Problems (1) Hyperlipidemia Assessment/Plan: f/u lipid profile Code(s): E78.5 - HYPERLIPIDEMIA, UNSPECIFIED (2) Pulmonary embolism Assessment/Plan: On anticoagulation Eliquis Code(s): I26.99 - OTHER PULMONARY EMBOLISM WITHOUT ACUTE COR PULMONALE (3) Syncope Assessment/Plan: No arrhythmias or pauses on telemetry. ECHO pending. Stress MIBI negative for ischemia 5 months ago. F/u orthostatic vital signs. Etiology of syncope likely vagal (seated for long period of time; had a large meal; ?stood up (though uses wheelchair); BUN/Cr elevated on admission). Maintain hydration. Code(s): R55 - SYNCOPE AND COLLAPSE Qualifiers: Syncope type: unspecified Qualified Code(s): R55 - Syncope and collapse (4) Ankle fracture Code(s): S82.899A - OTH FRACTURE OF UNSP LOWER LEG, INIT FOR CLOS FX (5) HTN (hypertension) Code(s): I10 - ESSENTIAL (PRIMARY) HYPERTENSION (6) Hypothyroidism Code(s): E03.9 - HYPOTHYROIDISM, UNSPECIFIED
--- NOTE | 2018-08-17 15:16 | PN ---
Progress Note (short form) - Note Progress Note: no SOB, chest pain Vital Signs - 24 hr 08/16/18 08/16/18 08/17/18 17:00 21:00 01:46 Temperature 97.6 F 97.6 F 98 F Pulse Rate 60 67 62 Respiratory 20 18 20 Rate Blood Pressure 148/70 146/71 142/63 O2 Sat by Pulse 97 Oximetry (%) 08/17/18 08/17/18 05:00 09:00 Temperature 98 F 98 F Pulse Rate 62 76 Respiratory 19 18 Rate Blood Pressure 146/83 132/66 O2 Sat by Pulse Oximetry (%) Current Medications Generic Name Dose Route Start Last Admin Trade Name Freq PRN Reason Stop Dose Admin Amlodipine Besylate 5 mg 08/15/18 10:00 08/17/18 09:05 Norvasc - PO 5 mg DAILY [facility] Administration Apixaban 10 mg 08/17/18 22:00 Eliquis - PO BID [facility] Metoprolol Succinate 50 mg 08/15/18 10:00 08/17/18 09:05 Toprol Xl - PO 50 mg DAILY [facility] Administration Laboratory Results - last 24 hr 08/16/18 08/16/18 08/17/18 19:25 19:25 05:30 WBC 8.1 RBC 3.84 Hgb 11.7 Hct 34.7 MCV 90.3 MCH 30.4 MCHC 33.7 RDW 14.5 Plt Count 216 MPV 8.8 Absolute Neuts (auto) 4.1 Neutrophils % 50.6 D Lymphocytes % 38.2 D Monocytes % 8.3 Eosinophils % 2.3 Basophils % 0.6 Nucleated RBC % 0 PTT (Actin FS) 65.1 H Triglycerides 169 H Cholesterol 194 Total LDL Cholesterol 122 H HDL Cholesterol 50 TSH 3.19 Free T4 1.07 08/17/18 05:30 WBC RBC Hgb Hct MCV MCH MCHC RDW Plt Count MPV Absolute Neuts (auto) Neutrophils % Lymphocytes % Monocytes % Eosinophils % Basophils % Nucleated RBC % PTT (Actin FS) 104.8 H Triglycerides Cholesterol Total LDL Cholesterol HDL Cholesterol TSH Free T4 S1 s2 RRR Lungs clear Abd- soft, NT right foot in boot no edema A/P S/P Rt ankle ORIF Acute PE HTN Acute kidney injury -- resolved -- dc ASA -- on heparin gtt-- dc and change to Eliquis -- Pulmonary eval noted -- 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 -- PT eval -- check CT head Dc planning if Ct head negative-- spoke with RN Problem List - Problems (1) Acute kidney injury Code(s): N17.9 - ACUTE KIDNEY FAILURE, UNSPECIFIED (2) Pulmonary embolism Code(s): I26.99 - OTHER PULMONARY EMBOLISM WITHOUT ACUTE COR PULMONALE (3) Syncope Code(s): R55 - SYNCOPE AND COLLAPSE Qualifiers: Syncope type: unspecified Qualified Code(s): R55 - Syncope and collapse (4) Ankle fracture Code(s): S82.899A - OTH FRACTURE OF UNSP LOWER LEG, INIT FOR CLOS FX (5) HTN (hypertension) Code(s): I10 - ESSENTIAL (PRIMARY) HYPERTENSION (6) Hypothyroidism Code(s): E03.9 - HYPOTHYROIDISM, UNSPECIFIED
[2018-08-17] MEDS: APIXABAN 5 MG TABLET PO SCH (21:09)
[2018-08-18 06:55] VITALS: TEMP 98.1
[2018-08-18] MEDS: amLODIPine BESYLATE 5 MG TABLET (FP) PO SCH (09:26)
[2018-08-18] MEDS: APIXABAN 5 MG TABLET PO SCH (09:27)
--- NOTE | 2018-08-18 10:57 | PN ---
Progress Note (short form) - Note Progress Note: PULMONARY Denies shortness of breath or chest pain. CT head yesterday without acute findings. Vital Signs Period Temp Pulse Resp BP Sys/Ray Pulse Ox Last 24 Hr 98 F-98.4 F 64-72 18-20 104-157/56-76 96-96 Gen: NAD at rest Heart: RRR Lung: decreased breath sounds at the bases Abd: soft, nontender Ext: no edema CBC, BMP 08/17/18 05:30 08/15/18 09:15 Active Medications Amlodipine Besylate (Norvasc -) 5 mg PO DAILY [facility] Last Admin: 08/18/18 09:26 Dose: 5 mg Apixaban (Eliquis -) 10 mg PO BID [facility] Last Admin: 08/18/18 09:27 Dose: 10 mg Metoprolol Succinate (Toprol Xl -) 50 mg PO DAILY [facility] Last Admin: 08/18/18 09:27 Dose: 50 mg A/P Syncope Acute Pulmonary Embolism s/p R Ankle ORIF R DVT HTN Acute Kidney Injury - continue anticoagulation - will need anticoagulation for at least 3 months - d/c planning
--- NOTE | 2018-08-18 11:39 | DS ---
Physical Examination Vital Signs: Vital Signs Temperature 98.1 F 08/18/18 08:05 Pulse Rate 69 08/18/18 08:05 Respiratory Rate 18 08/18/18 08:05 Blood Pressure 144/59 L 08/18/18 08:05 O2 Sat by Pulse Oximetry (%) 96 08/18/18 08:05 Constitutional: Yes: No Distress, Calm Cardiovascular: Yes: Regular Rate and Rhythm Respiratory: Yes: CTA Bilaterally Gastrointestinal: Yes: Normal Bowel Sounds, Soft. No: Tenderness Edema: No Labs: CBC, BMP 08/17/18 05:30 08/15/18 09:15 Discharge Summary Reason For Visit: ACUTE KDNEY INJURY/SYNCOPE/POSITIVE D DIMER Current Active Problems Acute kidney injury (Acute) Hyperlipidemia (Acute) Pulmonary embolism (Acute) Syncope (Acute) Hospital Course: Admitted for acute PE , acute renal failure V/Q scan - showed PE was on iv fluids and iv heparin gtt renal fialure resolved pt seen by Cardiology and Pulmonary heparin gtt dc and changed to Eliquis Echo-- no RV strain CT head-- negative stable for dc home on po eliquis Condition: Good - Instructions Diet, Activity, Other Instructions: Contact your orthopedist regarding your right ankle weight bearing status. Physical therapy for gait and balance training. Fall prevention Referrals: Wade Gambino MD, MD [Staff Physician] - Disposition: HOME - Home Medications Comprehensive Discharge Medication List: Ambulatory Orders Amlodipine Besylate [Norvasc -] 5 mg PO DAILY 07/14/18 Metoprolol Succinate [Toprol Xl] 50 mg PO DAILY 07/14/18 Apixaban [Eliquis -] 10 mg PO BID #90 tablet 08/18/18
[2018-08-18 13:17] VITALS: BP 132/55; PULSE 74
== END 2018-08-18 13:32 | disposition home health service (06) | DRG 176 ==
LOC: SUPCPDRO 16:54 → JER 16:54 → JERBED 18:02 → J4W 08-15 14:01 → OBSVTOIN 08-16 11:38
PROVIDERS: ADMIT Internal Medicine; ATTEND Internal Medicine
DX: I26.99 Other pulmonary embolism without acute cor pulmonale (principal); N17.9 Acute kidney failure, unspecified; I82.411 Acute embolism and thrombosis of right femoral vein; R55 Syncope and collapse; E78.00 Pure hypercholesterolemia, unspecified; I10 Essential (primary) hypertension; M54.5 Low back pain; S82.851D Displaced trimalleolar fracture of right lower leg, subsequent encounter for closed fracture with routine healing; E03.9 Hypothyroidism, unspecified
CPT/HCPCS: 36415; 70450-TC; 71045-TC-FY; 73610-TC-RT-FY; 78582-TC; 80048; 80053; 80061; 81003; 82550; 83721; 83735; 84439; 84443; 84484; 85025; 85379; 85610; 85730; 93005; 93010; 93306-TC; 93970-TC; 97116-GP; 97161-GP; 99285-25; A9539; A9540; G0378; J1644; J7030

== ENCOUNTER 2021-07-07 11:31 | Emergency (ER) | payer OTHER, BC ==
[2021-07-07 11:46] VITALS: BMI 33.8
[2021-07-07 15:00] VITALS: BP 177/57; PULSE 69; TEMP 97.1
== END 2021-07-07 15:19 | disposition home or self-care (01) ==
LOC: JER 11:31
DX: M25.562 Pain in left knee (principal); W01.0XXA Fall on same level from slipping, tripping and stumbling without subsequent striking against object, initial encounter
CPT/HCPCS: 72131-TC; 73562-TC-LT-FY; 73562-TC-RT-FY; 99285-25

== ENCOUNTER 2023-12-21 17:06 | Inpatient (IN) | payer OTHER, BC ==
[2023-12-21 18:33] LABS: BASO % 0.4 % (0-2.0); EOS % 0.1 % (0-4.5); HEMATOCRIT 37.7 % (32.4-45.2); HEMOGLOBIN 12.5 GM/dL (10.7-15.3); LYMPH % 10.4 % (8-40); MCH 30.1 pg (25.7-33.7); MCHC 33.1 g/dl (32.0-36.0); MEAN CELL VOLUME 90.9 fl (80-96); MONO % 12.5 % (3.8-10.2); NEUT % 76.6 % (42.8-82.8); PLATELET COUNT 171 10^3/uL (134-434); RBC 4.15 M/mm3 (3.60-5.2); RDW 14.6 % (11.6-15.6); WHITE BLOOD COUNT 7.1 K/mm3 (4.0-10.0)
[2023-12-21 19:43] LABS: POTASSIUM 4.3 mmol/L (3.5-5.1)
[2023-12-21 19:46] LABS: ALBUMIN 3.5 g/dl (3.4-5.0); BLOOD UREA NITROGEN 26.4 mg/dL (7-18)
[2023-12-21 19:49] LABS: CREATININE 1.1 mg/dL (0.55-1.3)
[2023-12-21 19:50] LABS: BILIRUBIN,TOTAL 0.6 mg/dL (0.2-1); TOT PROT 7.1 g/dl (6.4-8.2)
[2023-12-21 21:50] LABS: EPI CELLS 14 /uL (0-25.1); HYALINE CASTS 1 /uL (0-3.1); URINE APPEARANCE CLEAR; URINE BACTERIA 94 /uL (0-1359); URINE BILIRUBIN NEGATIVE (NEGATIVE); URINE COLOR YELLOW; URINE GLUCOSE (UA) NEGATIVE (NEGATIVE); URINE KETONE NEGATIVE (NEGATIVE); URINE LEUK ESTERASE 3+ (NEGATIVE); URINE NITRITE NEGATIVE (NEGATIVE); URINE PROTEIN 1+ (NEGATIVE); URINE RBC 17 /uL (0-23.9); URINE UROBILINOGEN 0.2 mg/dL (0.2-1.0); URINE WBC 18 /uL (0-25.8)
[2023-12-21] MEDS ORDERED: ACETAMINOPHEN INJECTION 100 ML ONE (22:15)
[2023-12-21] MEDS: SODIUM CHLORIDE 0.9% 500 ML INFUS.BAG IV ONE (22:23)
[2023-12-21] MEDS: ACETAMINOPHEN 1000 MG/100 ML BAG IVPB ONE (22:24)
[2023-12-22 00:16] LABS: EPI CELLS 15 /uL (0-25.1); HYALINE CASTS 0 /uL (0-3.1); URINE APPEARANCE CLEAR; URINE BACTERIA 233 /uL (0-1359); URINE BILIRUBIN NEGATIVE (NEGATIVE); URINE COLOR YELLOW; URINE GLUCOSE (UA) NEGATIVE (NEGATIVE); URINE KETONE NEGATIVE (NEGATIVE); URINE LEUK ESTERASE 3+ (NEGATIVE); URINE NITRITE NEGATIVE (NEGATIVE); URINE PROTEIN 1+ (NEGATIVE); URINE RBC 7 /uL (0-23.9); URINE UROBILINOGEN 0.2 mg/dL (0.2-1.0); URINE WBC 22 /uL (0-25.8)
[2023-12-22] MEDS: REMDESIVIR 200 MG in SODIUM CHLORIDE 250 ML IVPB ONE (01:04)
[2023-12-22 02:21] VITALS: BMI 33.3
[2023-12-22] MEDS: CEFTRIAXONE 1 GM in DEXTROSE 5%-WATER - 50 ML IVPB SCH (03:04)
[2023-12-22 08:37] LABS: BASO % 0.3 % (0-2.0); EOS % 0.1 % (0-4.5); HEMATOCRIT 38.1 % (32.4-45.2); HEMOGLOBIN 12.6 GM/dL (10.7-15.3); LYMPH % 13.2 % (8-40); MCH 29.8 pg (25.7-33.7); MCHC 33.1 g/dl (32.0-36.0); MEAN PLT VOLUME 9.6 fl (7.5-11.1); MONO % 12.9 % (3.8-10.2); NEUT % 73.5 % (42.8-82.8); PLATELET COUNT 159 10^3/uL (134-434); RBC 4.24 M/mm3 (3.60-5.2); RDW 14.6 % (11.6-15.6); WHITE BLOOD COUNT 6.1 K/mm3 (4.0-10.0)
[2023-12-22 08:59] LABS: POTASSIUM 3.7 mmol/L (3.5-5.1)
[2023-12-22 09:08] LABS: ALBUMIN 3.4 g/dl (3.4-5.0)
[2023-12-22 09:09] LABS: BLOOD UREA NITROGEN 21.5 mg/dL (7-18); CALCIUM 8.6 mg/dL (8.5-10.1)
[2023-12-22] MEDS: PREGABALIN 50 MG CAPSULE PO SCH (09:09)
[2023-12-22] MEDS: ENOXAPARIN NA (PORCINE) 40 MG/0.4 ML DISP.SYRIN SQ SCH (09:09)
[2023-12-22 09:11] LABS: PHOSPHOROUS 2.9 mg/dL (2.5-4.9)
[2023-12-22 09:13] LABS: BILIRUBIN,TOTAL 0.3 mg/dL (0.2-1); TOT PROT 6.8 g/dl (6.4-8.2)
[2023-12-22] MEDS ORDERED: amLODIPine BESYLATE 5 MG TABLET (FP) PO SCH (10:00)
[2023-12-22] MEDS ORDERED: PATIENT'S OWN MEDICATION (NON-FORMULARY) (Losartan Potassium 100 MG Tablet) PO SCH (10:00)
[2023-12-22] MEDS ORDERED: metoPROLOL SUCCINATE 25 MG TAB.SR.24H (FP) PO SCH (10:00)
[2023-12-22] MEDS: LACTATED RINGERS SOLUTION 1,000 ML/1,000 ML INFUS.BAG IV SCH (15:22)
[2023-12-22] MEDS: guaiFENesin 200 MG/10 ML 10 ML UNIT-DOSE CUPS PO ONE (20:59)
[2023-12-22] MEDS: ATORVASTATIN CA 20 MG TABLET (FP) PO SCH (21:41)
[2023-12-23] MEDS ORDERED: REMDESIVIR 200 MG in SODIUM CHLORIDE 250 ML IVPB ONE (01:00)
[2023-12-23 08:46] LABS: HEMATOCRIT 36.8 % (32.4-45.2); HEMOGLOBIN 12.2 GM/dL (10.7-15.3); MCH 30.1 pg (25.7-33.7); MCHC 33.1 g/dl (32.0-36.0); MEAN PLT VOLUME 9.2 fl (7.5-11.1); PLATELET COUNT 143 10^3/uL (134-434); RBC 4.04 M/mm3 (3.60-5.2); RDW 14.6 % (11.6-15.6); WHITE BLOOD COUNT 5.7 K/mm3 (4.0-10.0)
[2023-12-23 08:58] LABS: POTASSIUM 3.5 mmol/L (3.5-5.1)
[2023-12-23 09:07] LABS: ALBUMIN 3.1 g/dl (3.4-5.0); CALCIUM 8.3 mg/dL (8.5-10.1)
[2023-12-23 09:08] LABS: BLOOD UREA NITROGEN 21.8 mg/dL (7-18); MAGNESIUM 1.8 mg/dL (1.8-2.4)
[2023-12-23 09:11] LABS: BILIRUBIN,DIRECT 0.2 mg/dL (0.0-0.2); CREATININE 0.9 mg/dL (0.55-1.3); PHOSPHOROUS 2.9 mg/dL (2.5-4.9)
[2023-12-23 09:12] LABS: BILIRUBIN,TOTAL 0.4 mg/dL (0.2-1); TOT PROT 6.3 g/dl (6.4-8.2)
[2023-12-23] MEDS: diphenhydrAMINE HCL 25 MG CAPSULE (FP) PO PRN (09:50)
[2023-12-23] MEDS ORDERED: REMDESIVIR 100 MG in SODIUM CHLORIDE 250 ML IVPB SCH (10:00)
[2023-12-23] MEDS: REMDESIVIR 100 MG in SODIUM CHLORIDE 250 ML IVPB SCH (10:21)
[2023-12-23] MEDS ORDERED: LIDOCAINE VISCOUS 2% ORAL/TOP 15 ML UNIT-DOSE CUP MM PRN (15:08)
[2023-12-23] MEDS ORDERED: MENTHOL/PHENOL 1 EACH UD MM PRN (17:13)
[2023-12-23] MEDS: BENZOCAINE/MENTH/CETYLPYRD CL 1 EACH LOZENGE MM PRN (20:19)
[2023-12-23] MEDS: LOSARTAN POTASSIUM 25 MG TABLET PO ONE (21:30)
[2023-12-23] MEDS: guaiFENesin 200 MG/10 ML 10 ML UNIT-DOSE CUPS PO PRN (21:30)
[2023-12-23] MEDS: ACETAMINOPHEN 1000 MG/100 ML BAG IVPB PRN (22:20)
[2023-12-24] MEDS ORDERED: CEFTRIAXONE 1 GM in DEXTROSE 5%-WATER - 50 ML IVPB ONE (07:48)
[2023-12-25 04:21] VITALS: PULSE 75; RESP 18
[2023-12-25] MEDS: guaiFENesin 600 MG TABLET.ER (FP) PO PRN (05:37)
[2023-12-25] MEDS: metoPROLOL SUCCINATE 25 MG TAB.SR.24H (FP) PO SCH (09:54)
[2023-12-25] MEDS: LOSARTAN POTASSIUM 50 MG TABLET PO SCH (09:54)
[2023-12-25] MEDS: amLODIPine BESYLATE 2.5 MG TABLET (FP) PO SCH (09:54)
[2023-12-25] MEDS ORDERED: guaiFENesin 600 MG TABLET.ER (FP) PO SCH (10:00)
[2023-12-25 10:15] VITALS: BP 160/72; TEMP 98.7
== END 2023-12-25 12:23 | DRG 689 ==
LOC: JER 17:06 → JERBED 21:29 → OBSVTOIN 23:50 → J6S 12-22 02:10
PROVIDERS: ADMIT Internal Medicine; ATTEND Internal Medicine
PROC: XW033E5 Introduction of Remdesivir Anti-infective into Peripheral Vein, Percutaneous Approach, New Technology Group 5 (ICD-10-PCS; principal; 2023-12-21)
DX: N39.0 Urinary tract infection, site not specified (principal); U07.1 COVID-19; L89.311 Pressure ulcer of right buttock, stage 1; L89.321 Pressure ulcer of left buttock, stage 1; I10 Essential (primary) hypertension; E78.5 Hyperlipidemia, unspecified; R29.6 Repeated falls; E03.9 Hypothyroidism, unspecified; M48.061 Spinal stenosis, lumbar region without neurogenic claudication; S40.022A Contusion of left upper arm, initial encounter; W19.XXXA Unspecified fall, initial encounter; Y93.9 Activity, unspecified; Y92.89 Other specified places as the place of occurrence of the external cause; Y99.9 Unspecified external cause status
CPT/HCPCS: 0241U-QW; 36415; 70450-TC; 71045-TC-FY; 72170-TC-FY; 72192-TC; 73562-TC-RT-FY; 80048; 80053; 80076; 81003; 83735; 84100; 85025; 85027; 87086; 87635; 93005; 93010; 93971; 97116-GP; 97162-GP; 99284-25; 99285-25; G0378; J0131; J0248